=== PATIENT | female | born 1930 | race Caucasian/White ===

== ENCOUNTER 2018-01-02 09:47 | Emergency (ER) | payer OTHER ==
[2018-01-02 10:00] VITALS: BMI 17.5
[2018-01-02] MEDS ORDERED: traMADol HCL 50 MG TABLET PO ONE (10:26)
--- NOTE | 2018-01-02 10:26 | PDOC ---
History of Present Illness <Gilles Jaimes - Last Filed: 01/02/18 15:57> - General History Source: Patient Exam Limitations: No Limitations - History of Present Illness Initial Comments: 01/02/18 11:25 The patient is a 87 year old female, with a significant PMH of HTN, TIA and Afib , who presents to the emergency department with hip pain that began 2 weeks ago. The patient states she fell and had surgery 2 weeks ago to her left hip and is currently going to rehab. The patient states she has been having intermittent dull achy hip pain located to the left lateral side that radiates down her left leg since her surgery. The patient states pain worsens with movement and alleviated with rest, temporary relief with Percocet. The patient also mentions she needs assistance when ambulating. The patients physical therapist and aide recommended she go to the ER for further evaluation. The patient denies chest pain, shortness of breath, headache and dizziness. Denies fever, chills, nausea, vomit, diarrhea and constipation. Denies dysuria, frequency, urgency and hematuria. Allergies: NKDA Past surgical history: Hip surgery & laminectomy Social history: None reported PCP: None reported <Penny Wu - Last Filed: 01/02/18 16:59> - General Chief Complaint: Pain Stated Complaint: HIP PAIN Time Seen by Provider: 01/02/18 10:09 Past History - Past Medical History Cardiac Disorders: Yes COPD: No HTN: Yes Hypercholesterolemia: Yes - Surgical History Neurologic Surgery: Yes (laminectomy) - Suicide/Smoking/Psychosocial Hx Smoking History: Never smoked Have you smoked in the past 12 months: No Information on smoking cessation initiated: No Hx Alcohol Use: No Drug/Substance Use Hx: No Substance Use Type: None <Gilles Jaimes - Last Filed: 01/02/18 15:57> <Penny Wu - Last Filed: 01/02/18 16:59> - Past Medical History Allergies/Adverse Reactions: Allergies Allergy/AdvReac Type Severity Reaction Status Date / Time No Known Allergies Allergy Verified 01/02/18 09:53 Home Medications: Ambulatory Orders Acetaminophen 650 mg PO AM 01/02/18 Clotrimazole/Betamet Diprop [Lotrisone Cream (Small Tube)] 1 applic TP BID 01/02 Digoxin [Lanoxin -] 0.125 mg PO DAILY 01/02/18 Diphenhydramine [Benadryl Oral Solution -] 25 mg PO HS 01/02/18 Docusate Sodium [Colace -] 300 mg PO HS 01/02/18 Dorzolamide HCl [Trusopt 2%] 1 drop OU BID 01/02/18 Metoprolol Succinate 50 mg PO DAILY 01/02/18 Oxycodone HCl/Acetaminophen [Percocet 5-325 mg Tablet] 1 tab PO DAILY 01/02/18 Oxycodone HCl/Acetaminophen [Percocet 5-325 mg Tablet] 1 tab PO Q6H PRN Rivaroxaban [Xarelto -] 20 mg PO ASDIR 01/02/18 Simvastatin 40 mg PO HS 01/02/18 Tramadol HCl 50 mg PO QID PRN #12 tablet MDD 4 01/02/18 Review of Systems - Review of Systems Able to Perform ROS?: Yes Comments:: 01/02/18 11:27 Constitutional - Pt denies Fever, Chills, weakness, HEENT: denies vision changes, sore throat Respiratory: Denies cough, sob, hemoptysis Cardiac: denies chest pain, palpitations, lightheadedness, leg swelling Abd/GI: denies abd pain, nausea, vomiting, blood per rectum, melena, diarrhea : denies dysuria, frequency, discharge Musculoskeletal - +left hip pain. Denies back pain, joint swelling skin - denies bruising, erythema, rash neurological: denies headache, numbness, focal weakness, tingling, ataxia, weakness hematologic: denies anemia, easy bruising, easy bleeding <Penny Wu - Last Filed: 01/02/18 16:59> *Physical Exam - Vital Signs Last Vital Signs Temp Pulse Resp BP Pulse Ox 97.7 F 79 20 160/85 97 01/02/18 09:53 01/02/18 09:53 01/02/18 09:53 01/02/18 09:53 01/02/18 09:53 <Gilles Jaimes - Last Filed: 01/02/18 15:57> - Vital Signs Last Vital Signs Temp Pulse Resp BP Pulse Ox 97.7 F 79 20 160/85 97 01/02/18 09:53 01/02/18 09:53 01/02/18 09:53 01/02/18 09:53 01/02/18 09:53 <Penny Wu - Last Filed: 01/02/18 16:59> ED Treatment Course - Medications Given in the ED: ED Medications Discontinued Medications Generic Name Dose Route Start Last Admin Trade Name Saad PRN Reason Stop Dose Admin Tramadol HCl 50 mg 01/02/18 10:26 01/02/18 11:10 Ultram - PO 01/02/18 10:27 50 mg ONCE ONE Administration <Bryce,Aisblaine - Last Filed: 01/02/18 16:59> Medical Decision Making - Medical Decision Making 01/02/18 10:22 87y F hx afib on xerolto, htn (off meds now), hl, of s/p ORIF for L hip fx 2 weeks ago presents with aching/pain in hte left hip. Pt notes her pain was minimal and tolerable the first week. Afterwards notes the pain has been getting wrose. Pt noets pain is worse with movement. denies any falls/injuries. pt notes hte pain starts in her back side and radiates down her left leg to th eknee. denies any fever/chills, n/v, numbnes/tingling/weakness, cp, sob, abd pain. denies any urinary or bowel symtoms on exam pts owund site is healing well, dry, non indurated ranging her L hip passively without discomfort no focal tenderness on her back.buttock n/v intact ?sciatica will ck xray to eval her hip will give tramadol will reassess 01/02/18 14:30 pts xray reveals no acut eprocesses pt feelin gimproved will dc pt with ortho fu return prcautions were discussed I discussed the physical exam findings, ancillary test results and final diagnoses with the patient. I answered all of the patient's questions. The patient was satisfied with the care received and felt comfortable with the discharge plan and treatment plan. The patient will call their primary care physician within 24 hours to arrange follow-up and will return to the Emergency Department with any new, persistent or worsening symptoms. <Gilles Jaimes - Last Filed: 01/02/18 15:57> *DC/Admit/Observation/Transfer - Discharge Dispostion Decision to Admit order: No <Gilles Jaimes - Last Filed: 01/02/18 15:57> - Attestations Scribe Attestion: 01/02/18 11:28 Documentation prepared by Penny Wu, acting as medical malpractice paralegal for Gilles Jaimes MD. <Penny Wu - Last Filed: 01/02/18 16:59> Diagnosis at time of Disposition: Sciatica Qualifiers: Laterality: left Qualified Code(s): M54.32 - Sciatica, left side - Discharge Dispostion Disposition: HOME Condition at time of disposition: Improved - Prescriptions Prescriptions: Tramadol HCl 50 mg PO QID PRN #12 tablet MDD 4 PRN Reason: Pain - Referrals Referrals: Ricardo Mesa MD [Staff Physician] - - Patient Instructions Printed Discharge Instructions: DI for Sciatica Additional Instructions: I suspect that you're symptoms are due to sciatica. Please follow-up with orthopedics as necessary for reevaluation. You have worsening pain, difficulty ambulating, difficulty having bowel movements or urination return immediately for reevaluation. Tramadol for your pain but be aware it may make you sleepy. Print Language: BELARUSIAN
[2018-01-02] MEDS ORDERED: traMADol HCL 50 MG TABLET ONE (11:06)
[2018-01-02 16:51] VITALS: BP 146/78; PULSE 80; TEMP 97.6
== END 2018-01-02 19:59 | disposition home or self-care (01) ==
LOC: JER 09:47
DX: M54.32 Sciatica, left side (principal); I48.91 Unspecified atrial fibrillation; Z79.01 Long term (current) use of anticoagulants; Z98.890 Other specified postprocedural states
CPT/HCPCS: 73523-TC-FY; 99283-25

== ENCOUNTER 2018-01-25 00:14 | Observation (INO) | payer OTHER ==
--- NOTE | 2018-01-25 01:22 | PDOC ---
History of Present Illness - General Chief Complaint: Chronic pain Stated Complaint: DVT LEFT LEG/PRESSURE ULCER HEELS Time Seen by Provider: 01/25/18 00:26 History Source: Patient - History of Present Illness Initial Comments: 01/25/18 01:14 87 y/o f withpmh of htn, afib, hip surgery on xarelto 20mg daily was sent in from [facility] new DVT in left lower limb. Patient denies pain in leg, sob , chest pain, palpitations. Denies valvular heart sugery. Denies bleeding from nose, urine and stool. States she was in [facility] for rehab after hip fracture s/p hemiarthroplasty. States she spends 2 hours in PT and rest of the time lies in bed. , 01/25/18 01:22 01/25/18 01:25 Past History - Past Medical History Allergies/Adverse Reactions: Allergies Allergy/AdvReac Type Severity Reaction Status Date / Time No Known Allergies Allergy Verified 01/25/18 00:25 Home Medications: Ambulatory Orders Acetaminophen 650 mg PO AM 01/02/18 Clotrimazole/Betamet Diprop [Lotrisone Cream (Small Tube)] 1 applic TP BID 01/02 Digoxin [Lanoxin -] 0.125 mg PO DAILY 01/02/18 Diphenhydramine [Benadryl Oral Solution -] 25 mg PO HS 01/02/18 Docusate Sodium [Colace -] 300 mg PO HS 01/02/18 Dorzolamide HCl [Trusopt 2%] 1 drop OU BID 01/02/18 Metoprolol Succinate 50 mg PO DAILY 01/02/18 Oxycodone HCl/Acetaminophen [Percocet 5-325 mg Tablet] 1 tab PO DAILY 01/02/18 Oxycodone HCl/Acetaminophen [Percocet 5-325 mg Tablet] 1 tab PO Q6H PRN Rivaroxaban [Xarelto -] 20 mg PO ASDIR 01/02/18 Simvastatin 40 mg PO HS 01/02/18 Tramadol HCl 50 mg PO QID PRN #12 tablet MDD 4 01/02/18 Cardiac Disorders: Yes COPD: No HTN: Yes Hypercholesterolemia: Yes - Surgical History Neurologic Surgery: Yes (laminectomy) - Immunization History Immunization Up to Date: Yes - Suicide/Smoking/Psychosocial Hx Smoking History: Never smoked Have you smoked in the past 12 months: No Hx Alcohol Use: No Drug/Substance Use Hx: No Substance Use Type: None Review of Systems - Review of Systems Constitutional: No: Chills, Fever HEENTM: No: Blurred Vision Respiratory: No: Cough, Shortness of Breath, Productive cough Cardiac (ROS): No: Chest Pain, Lightheadedness, Palpitations ABD/GI: No: Diarrhea, Nausea, Vomiting : No: Burning, Dysuria, Frequency Neurological: No: Symptoms reported, Headache, Numbness, Tingling *Physical Exam - Vital Signs Last Vital Signs Temp Pulse Resp BP Pulse Ox 98.3 F 60 20 154/88 99 01/25/18 00:23 01/25/18 00:23 01/25/18 00:23 01/25/18 00:23 01/25/18 00:23 ED Treatment Course - LABORATORY CBC & Chemistry Diagram: 01/25/18 02:05 01/25/18 02:05 - RADIOLOGY Radiology Studies Ordered: Category Date Time Status DUPLEX VASCUL US-2LEGS [US] Stat Ultrasound 01/25/18 01:13 Ordered Medical Decision Making - Medical Decision Making 01/25/18 01:00 87 y/o f withpmh of htn, afib, hip surgery on xarelto 20mg daily was sent in from [facility] new DVT in left lower limb. Patient denies pain in leg, sob , chest pain, palpitations. Denies valvular heart sugery. Denies bleeding from nose, urine and stool. called [facility] home, confirmed from nurse wesley that patient took last dose of xarelto at 5 pm duplex scan report from [facility]: shows dvt in posterior tebial artery We will get cbc, cmp, cxr, pt/inr, ptt. 01/25/18 01:[address] marcelo. As patient has failure of xarelto she needs to be switched to other AC after minimum 12 hours. We will start her on heparin drip without bolus after 12 hours from last dose of xarelt at 5 am and then after 24 hours from last dose of xarelto i.e at 5pm we will switch her to lovenox. watch for bleeding. fall risk precaustions. 01/25/18 02:55 [facility] Spoke with resident Dr. Olu guan MD. patient accepted. *DC/Admit/Observation/Transfer Diagnosis at time of Disposition: DVT (deep venous thrombosis) Qualifiers: DVT location: lower extremity Affected thrombotic vein of extremity: tibial Chronicity: acute Laterality: left Qualified Code(s): I82.442 - Acute embolism and thrombosis of left tibial vein - Discharge Dispostion Decision to Admit order: Yes - Referrals - Patient Instructions - Post Discharge Activity
[2018-01-25] MEDS ORDERED: HEPARIN NA (PORCINE) 5,000 UNITS/ML 1ML VIAL IVPUSH PRN ×2 (01:30)
--- NOTE | 2018-01-25 02:00 | PDOC ---
Attending Attestation - Resident Resident Name: YonatanChester Cher - ED Attending Attestation I have performed the following: I have examined & evaluated the patient, The case was reviewed & discussed with the resident, I agree w/resident's findings & plan, Exceptions are as noted - HPI HPI: 01/25/18 01:58 87 yo F with h/o afib, hip surgery here with ankle swelling, found to have dvt left leg. has been on xarelto. no cp no sob. no other complaints. - Physicial Exam PE: 01/25/18 01:59 awake alert lungs clear bilaterlly heart rrr no mrg. abd soft nt nd. ext wwp. no appreiciated edema. - Medical Decision Making 01/25/18 01:59 plan will likley require heparin, and switch to another agent. may also require ivc filter. will d/w hematology. plan to admit for anticoagulation. labs cbc cmp inr.
[2018-01-25 02:20] LABS: BASO % 1.4 % (0-2.0); EOS % 1.4 % (0-4.5); HEMATOCRIT 35.7 % (32.4-45.2); HEMOGLOBIN 12.1 GM/dL (10.7-15.3); LYMPH % 18.7 % (8-40); MCH 30.2 pg (25.7-33.7); MCHC 33.8 g/dl (32.0-36.0); MEAN CELL VOLUME 89.3 fl (80-96); MEAN PLT VOLUME 6.3 fl (7.5-11.1); MONO % 8.8 % (3.8-10.2); NEUT % 69.7 % (42.8-82.8); PLATELET COUNT 485 K/MM3 (134-434); RDW 14.5 % (11.6-15.6); WHITE BLOOD COUNT 7.8 K/mm3 (4.0-10.0)
[2018-01-25 02:32] LABS: INR 1.64 (0.83-1.09); PROTHROMBIN TIME (PATIENT) 18.5 SEC (9.7-13.0)
[2018-01-25 02:35] LABS: ACTIVATED PTT 42.5 SECONDS (25.2-36.5)
[2018-01-25 02:44] LABS: ALBUMIN 2.8 g/dl (3.4-5.0); ANION GAP 5 MMOL/L (8-16); BILIRUBIN,TOTAL 0.4 mg/dL (0.2-1.0); BLOOD UREA NITROGEN 10 mg/dL (7-18); CALCIUM 8.4 mg/dL (8.5-10.1); CHLORIDE 101 mmol/L (98-107); CO2 30 mmol/L (21-32); CREATININE 0.6 mg/dL (0.55-1.02); GLUCOSE,RANDOM 83 mg/dL (74-106); POTASSIUM 4.7 mmol/L (3.5-5.1); SGOT/AST 28 U/L (15-37); SGPT/ALT 22 U/L (12-78); SODIUM 136 mmol/L (136-145); TOT PROT 5.8 g/dl (6.4-8.2)
[2018-01-25 02:45] LABS: ALK PHOS 121 U/L (45-117)
--- NOTE | 2018-01-25 02:54 | PN ---
Teaching Attending Note Name of Resident: Chava Santos ATTENDING PHYSICIAN STATEMENT I saw and evaluated the patient. I reviewed the resident's note and discussed the case with the resident. I agree with the resident's findings and plan as documented. SUBJECTIVE: Patient is an 87 year old woman, resident of [facility] with history of HTN, afib , left hip surgery after a fall, laminectomy and TIA on xarelto 20mg daily brought to the ER for new DVT in left lower limb. Patient denies pain in leg, sob, chest pain, palpitations. Denies valvular heart surgery. Denies bleeding from nose, urine and stool. She is at [facility] for rehab after hip fracture s/p hemiarthroplasty. States she spends 2 hours in PT and rest of the time lies in bed. OBJECTIVE: Alert Vital Signs Period Temp Pulse Resp BP Sys/Pabon Pulse Ox Last 24 Hr 98.3 F 60 20 154/88 99 HEENT: No Jaundice, eye redness or discharge, PERRLA, EOMI. Normocephalic, atraumatic. External ears are normal and hearing is grossly intact. No nasal discharge. Neck: Supple, nontender. No palpable adenopathy or thyromegaly. No JVD Chest: Good effort. Clear to auscultation and percussion. Heart: Regular. No S3, rub or murmur Abdomen: Not distended, soft, nontender and no HSM. No rebound or guarding. Normoactive bowel sounds. Ext: Peripheral pulses intact. Left heel ulcer with dressing and heel guard. Left leg edema. Limited ROM of left hip. Skin: Warm and dry. No petechiae, rash or ecchymosis. Neuro: Alert. Oriented x3. CN 2-12 grossly intact. Sensation grossly intact in all four extremities and DTR are symmetric. Current Medications Generic Name Dose Route Start Last Admin Trade Name Freq PRN Reason Stop Dose Admin Heparin Sodium (Porcine) 1,900 unit 01/25/18 01:30 Heparin - 40 unit/kg (1900 unit) IVPUSH PRN PRN For aPTT 35 to 45 seconds Heparin Sodium (Porcine) 3,800 unit 01/25/18 01:30 Heparin - 80 unit/kg (3800 unit) IVPUSH PRN PRN aPTT <35 seconds Heparin Sodium (Porcine) 25, 500 mls @ 16.98 mls/hr 01/25/18 05:30 000 unit/ Sodium Chloride IV TITR CASPER Protocol 18 UNIT/KG/HR Home Medications Medication Instructions Recorded Acetaminophen 650 mg PO AM 01/02/18 Clotrimazole/Betamet Diprop 1 applic TP BID 01/02/18 [Lotrisone Cream (Small Tube)] Digoxin [Lanoxin -] 0.125 mg PO DAILY 01/02/18 Diphenhydramine [Benadryl Oral 25 mg PO HS 01/02/18 Solution -] Docusate Sodium [Colace -] 300 mg PO HS 01/02/18 Dorzolamide HCl [Trusopt 2%] 1 drop OU BID 01/02/18 Metoprolol Succinate 50 mg PO DAILY 01/02/18 Oxycodone HCl/Acetaminophen 1 tab PO DAILY 01/02/18 [Percocet 5-325 mg Tablet] Oxycodone HCl/Acetaminophen 1 tab PO Q6H PRN 01/02/18 [Percocet 5-325 mg Tablet] Rivaroxaban [Xarelto -] 20 mg PO ASDIR 01/02/18 Simvastatin 40 mg PO HS 01/02/18 Tramadol HCl 50 mg PO QID PRN #12 tablet MDD 4 01/02/18 Abnormal Lab Results 01/25/18 01/25/18 01/25/18 02:05 02:05 02:05 Plt Count 485 H MPV 6.3 L PT with INR 18.50 H INR 1.64 H PTT (Actin FS) 42.5 H Anion Gap 5 L Calcium 8.4 L Alkaline Phosphatase 121 H Total Protein 5.8 L Albumin 2.8 L ASSESSMENT AND PLAN: 1. Left leg DVT - Happened while on Xarelto. Repeat study being done. Being started on IV heparin drip 12 hours after last Xarelto dose and then bridge to lovenox later. Hematology consult. 2. Hypoalbuminemia - Possibly due to combined effects of malnutrition and inflammation associated with comorbid chronic conditions. Will ensure adequate dietary protein intake and also consult breast buffer. 3. DVT prophylaxis - On IV Heparin drip 4. Advance directives - Full code
--- NOTE | 2018-01-25 04:48 | HP ---
CHIEF COMPLAINT: Clot in Leg PCP: HISTORY OF PRESENT ILLNESS: 87 yo female with PMH HTN, HLD, A-fib, Left hip surgery x 2 since november presented from [facility] after her leg was noted to be swollen there and she was diagnosed with a LLE DVT on u/s. She says they noted her left leg to be swollen for a few days so they did an ultrasound which showed a clot. Of note the pt has been on Xarelto 20 mg PO Daily for AC. She denies any headache, vision changes, SOB, Chest pain, pleuritic pain, cough, or pain in her legs. She spends a couple of hours with PT daily but is otherwise confined to her bed ER course was notable for: (1) B/l Duplex LE (2) Case discussed with hematology (3) Recent Travel: none PAST MEDICAL HISTORY: HTN, HLD, A-fib PAST SURGICAL HISTORY: Left hip surgery in November of this year -Left hip partial arthroplasty in December of this year Social History: Smoking: denies Alcohol: denies Drugs: denies Family History: Allergies No Known Allergies Allergy (Verified 01/25/18 00:25) HOME MEDICATIONS: Home Medications Medication Instructions Recorded Acetaminophen 650 mg PO AM 01/02/18 Clotrimazole/Betamet Diprop 1 applic TP BID 01/02/18 [Lotrisone Cream (Small Tube)] Digoxin [Lanoxin -] 0.125 mg PO DAILY 01/02/18 Diphenhydramine [Benadryl Oral 25 mg PO HS 01/02/18 Solution -] Docusate Sodium [Colace -] 300 mg PO HS 01/02/18 Dorzolamide HCl [Trusopt 2%] 1 drop OU BID 01/02/18 Metoprolol Succinate 50 mg PO DAILY 01/02/18 Oxycodone HCl/Acetaminophen 1 tab PO DAILY 01/02/18 [Percocet 5-325 mg Tablet] Oxycodone HCl/Acetaminophen 1 tab PO Q6H PRN 01/02/18 [Percocet 5-325 mg Tablet] Rivaroxaban [Xarelto -] 20 mg PO ASDIR 01/02/18 Simvastatin 40 mg PO HS 01/02/18 Tramadol HCl 50 mg PO QID PRN #12 tablet MDD 4 01/02/18 REVIEW OF SYSTEMS CONSTITUTIONAL: Absent: fever, chills, diaphoresis, generalized weakness, malaise, loss of appetite, weight change HEENT: Absent: rhinorrhea, nasal congestion, throat pain, throat swelling, difficulty swallowing, mouth swelling, ear pain, eye pain, visual changes CARDIOVASCULAR: Absent: chest pain, syncope, palpitations, irregular heart rate, lightheadedness , peripheral edema RESPIRATORY: Absent: cough, shortness of breath, dyspnea with exertion, orthopnea, wheezing, stridor, hemoptysis GASTROINTESTINAL: Absent: abdominal pain, abdominal distension, nausea, vomiting, diarrhea, constipation, melena, hematochezia GENITOURINARY: Absent: dysuria, frequency, urgency, hesitancy, hematuria, flank pain, genital pain MUSCULOSKELETAL: Absent: myalgia, arthralgia, joint swelling, back pain, neck pain SKIN: Absent: rash, itching, pallor HEMATOLOGIC/IMMUNOLOGIC: Absent: easy bleeding, easy bruising, lymphadenopathy, frequent infections ENDOCRINE: Absent: unexplained weight gain, unexplained weight loss, heat intolerance, cold intolerance NEUROLOGIC: Absent: headache, focal weakness or paresthesias, dizziness, unsteady gait, seizure, mental status changes, bladder or bowel incontinence PSYCHIATRIC: Absent: anxiety, depression, suicidal or homicidal ideation, hallucinations. PHYSICAL EXAMINATION Vital Signs - 24 hr 01/25/18 01/25/18 00:23 03:35 Temperature 98.3 F 98.3 F Pulse Rate 60 Pulse Rate [ 62 Left Radial] Respiratory 20 20 Rate Blood Pressure 154/88 Blood Pressure 134/80 [Left Arm] O2 Sat by Pulse 99 98 Oximetry (%) Gen: Alert and oriented, no acute distress HEENT: PERRL, EOMI, moist mucus membranes Neck:supple, no lymphadenopathy Heart: Irregularly irregular no murmurs Lungs: CTA b/l, no rhonchi or wheezes Abdomen: Soft nontender, normoactive bowel sounds Extremities: Swelling on LLL when compared with right. 2+ pulses throughout. LLL heel ulcer currently being offloaded Laboratory Results - last 24 hr 01/25/18 01/25/18 01/25/18 02:05 02:05 02:05 WBC 7.8 RBC 4.00 Hgb 12.1 Hct 35.7 MCV 89.3 MCH 30.2 MCHC 33.8 RDW 14.5 Plt Count 485 H MPV 6.3 L Absolute Neuts (auto) 5.4 Neutrophils % 69.7 Lymphocytes % 18.7 Monocytes % 8.8 Eosinophils % 1.4 Basophils % 1.4 Nucleated RBC % 0 PT with INR INR PTT (Actin FS) Sodium 136 Potassium 4.7 Chloride 101 Carbon Dioxide 30 Anion Gap 5 L BUN 10 Creatinine 0.6 Creat Clearance w eGFR > 60 Random Glucose 83 Calcium 8.4 L Magnesium 2.3 Total Bilirubin 0.4 AST 28 ALT 22 Alkaline Phosphatase 121 H Total Protein 5.8 L Albumin 2.8 L 01/25/18 02:05 WBC RBC Hgb Hct MCV MCH MCHC RDW Plt Count MPV Absolute Neuts (auto) Neutrophils % Lymphocytes % Monocytes % Eosinophils % Basophils % Nucleated RBC % PT with INR 18.50 H INR 1.64 H PTT (Actin FS) 42.5 H Sodium Potassium Chloride Carbon Dioxide Anion Gap BUN Creatinine Creat Clearance w eGFR Random Glucose Calcium Magnesium Total Bilirubin AST ALT Alkaline Phosphatase Total Protein Albumin ASSESSMENT/PLAN: 87 yo female with PMH HTN, HLD, A-fib, Left hip surgery x 2 since november admitted for observation following formation of a DVT in her LLL while on Xarelto. DVT on AC -Etiology of Xarelto failure is unknown, pt not on any CY inducers -B/l duplex of LEs reformed at our institution -Case discussed with Heme/Onc by ED provider Last dose Xarelto confirmed 5pm At 5 am (12 hrs later) pt can begin heparin drip at 5 pm (24 hours later) pt can stop heparin drip and begin lovenox Will await further recommendations from hematology -Pt without any respiratory symptom, tachycardia, or hemodynamic instability. Will hold off on CTA chest A-fib -Pt rate is currently well controlled and she is hemodynamically stable -Toprol XL 50 mg PO Daily -Digoxin 0.125 mg PO Daily HLD -Lipitor 20 mg PO HS DVT Prophylaxis -known DVT, will start heparin drip in AM and progress as above FEN Fluids: None Electrolytes: No electrolyte abnormalities: BMP in AM Nutrition: Sodium controlled diet Disposition Observation for medication adjustment Visit type - Emergency Visit Emergency Visit: Yes Care time: The patient presented to the Emergency Department on the above date and was hospitalized for further evaluation of their emergent condition. - New Patient This patient is new to me today: Yes Date on this admission: 01/25/18 - Critical Care Critical Care patient: No Hospitalist Screening - Colonoscopy Questionnaire Colonoscopy Questionnaire: Colonoscopy Questionnaire - Patient: 50 - 75 years old and never had a screening colonoscopy: No History of colon or rectal polyps, or CA: No History of IBD, Crohn's disease or UC: No History of abdominal radiation therapy as a child: No - Relative: 1 with colon or rectal CA, or polyps at age 60 or younger: No Colon or rectal CA diagnosed at age 45 or younger: No Multiple relatives with colon or rectal CA: No - Outcome: Screening Result: Negative Screen
[2018-01-25] MEDS ORDERED: HEPARIN - 25,000 UNIT in SODIUM CHLORIDE 495 ML IV SCH (05:30)
[2018-01-25] MEDS ORDERED: HEPARIN INFUSION - 25,000 UNITS/500 ML INFUS.BAG IVPB SCH (05:45)
[2018-01-25] MEDS: ACETAMINOPHEN 325 MG TABLET (FP) PO SCH ×2 (06:56→06:58)
[2018-01-25] MEDS ORDERED: PT OWN MED DRAWER 7, Y5N ONE (09:56)
[2018-01-25] MEDS: DIGOXIN 0.125 MG TABLET (FP) PO SCH (10:49)
[2018-01-25] MEDS: CLOTRIMAZOLE/BETAMET DIPROP 15 GM TUBE TP SCH ×2 (10:50→22:08)
[2018-01-25] MEDS: DORZOLAMIDE 2% HCL OPHTHALMIC SOLUTION 10 ML BOTTLE OU SCH ×2 (10:51→22:07)
[2018-01-25] MEDS ORDERED: traMADol HCL 50 MG TABLET PO PRN (14:04)
--- NOTE | 2018-01-25 16:28 | PN ---
Physical Exam: SUBJECTIVE: Patient seen and examined, no new left leg pain. no chest pain, dypsnea, palpitations or dizziness. OBJECTIVE: Vital Signs Period Temp Pulse Resp BP Sys/Pabon Pulse Ox Last 24 Hr 97.5 F-98.3 F 60-78 18-20 134-156/80-88 98-99 GENERAL: The patient is awake, alert, and fully oriented, in no acute distress. HEAD: Normal with no signs of trauma. EYES: PERRL, extraocular movements intact, sclera anicteric, conjunctiva clear. No ptosis. NECK: soft, supple, no JVD LUNGS: Breath sounds equal, clear to auscultation bilaterally, no wheezes, no crackles, no accessory muscle use. HEART: S1S2 irregular ABDOMEN: Soft, nontender, nondistended, normoactive bowel sounds, no guarding, no rebound, EXTREMITIES: 2+ pulses, warm, well-perfused, no edema appreciated, moves left leg freely in bed PSYCH: Normal mood, normal affect. SKIN: Warm, dry, normal turgor, no rashes or lesions noted Laboratory Results - last 24 hr 01/25/18 01/25/18 01/25/18 02:05 02:05 02:05 WBC 7.8 RBC 4.00 Hgb 12.1 Hct 35.7 MCV 89.3 MCH 30.2 MCHC 33.8 RDW 14.5 Plt Count 485 H MPV 6.3 L Absolute Neuts (auto) 5.4 Neutrophils % 69.7 Lymphocytes % 18.7 Monocytes % 8.8 Eosinophils % 1.4 Basophils % 1.4 Nucleated RBC % 0 PT with INR INR PTT (Actin FS) Sodium 136 Potassium 4.7 Chloride 101 Carbon Dioxide 30 Anion Gap 5 L BUN 10 Creatinine 0.6 Creat Clearance w eGFR > 60 Random Glucose 83 Calcium 8.4 L Magnesium 2.3 Total Bilirubin 0.4 AST 28 ALT 22 Alkaline Phosphatase 121 H Total Protein 5.8 L Albumin 2.8 L 01/25/18 01/25/18 02:05 12:15 WBC RBC Hgb Hct MCV MCH MCHC RDW Plt Count MPV Absolute Neuts (auto) Neutrophils % Lymphocytes % Monocytes % Eosinophils % Basophils % Nucleated RBC % PT with INR 18.50 H INR 1.64 H PTT (Actin FS) 42.5 H 51.9 H Sodium Potassium Chloride Carbon Dioxide Anion Gap BUN Creatinine Creat Clearance w eGFR Random Glucose Calcium Magnesium Total Bilirubin AST ALT Alkaline Phosphatase Total Protein Albumin Active Medications Generic Name Dose Route Start Last Admin Trade Name Freq PRN Reason Stop Dose Admin Acetaminophen 650 mg 01/25/18 07:00 01/25/18 06:58 Tylenol - PO Not Given AM [facility] Atorvastatin Calcium 20 mg 01/25/18 22:00 Lipitor - PO HS [facility] Clotrimazole 1 applic 01/25/18 10:00 01/25/18 10:50 Lotrisone Cream (Small Tube) TP 1 applic BID [facility] Administration Digoxin 0.125 mg 01/25/18 10:00 01/25/18 10:49 Lanoxin - PO 0.125 mg DAILY [facility] Administration Docusate Sodium 300 mg 01/25/18 22:00 Colace - PO HS [facility] Dorzolamide HCl 1 drop 01/25/18 10:00 01/25/18 10:51 Trusopt 2% OU 1 drop BID [facility] Administration Enoxaparin Sodium 45 mg 01/25/18 17:00 Lovenox - SQ BID@0500,1700 [facility] Metoprolol Succinate 50 mg 01/25/18 10:00 01/25/18 10:49 Toprol Xl - PO 50 mg DAILY [facility] Administration Tramadol HCl 50 mg 01/25/18 14:04 01/25/18 15:00 Ultram - PO 50 mg Q8H PRN Administration PAIN LEVEL 6-10 Duplex LE neg for DVT ASSESSMENT/PLAN: 87 yof with PMhx of Left hip surgery x2 since November, Afib, HTN, HLD, on xarelto, sent from [place] for concerns of LLE DVT on outpatient imaging. -Recent left hip surgery x 2 since November -Left posterior tibial/peroneal DVT on outpatient imaging, [place] here neg -Afib -HTN -HLD Plan: Duplex both LE neg here. Called radiology to discuss in details, especial about left posterior and peroneal veins as commented on outpatient Duplex. Unable to reach currently. ( off for the day per staff) Heparin drip dc ed 3:30 pm, start lovenox 45 mg BID at 5 pm today. Discussed with heme, will follow up recs. Continue home pain regimen. Continue toprol/digoxin/statin. Dispo will plan to d/c back to [facility] in 24 hours on xarelto pending confirmation of no DVT on DUplex, Hematology in agreement with the plan. Plan discussed with patient and nursing in detail, all questions answered. Visit type - Emergency Visit Emergency Visit: Yes ED Registration Date: 01/25/18 Care time: The patient presented to the Emergency Department on the above date and was hospitalized for further evaluation of their emergent condition. - New Patient This patient is new to me today: Yes Date on this admission: 01/25/18 - Critical Care Critical Care patient: No - Discharge Referral Referred to [facility] Med P.C.: No
--- NOTE | 2018-01-25 17:50 | CONSULT ---
Consult - text type - Consultation Consultation Note: 87 yo female with PMH HTN, HLD, A-fib, Left hip surgery x 2 since november presented from [facility] after her leg was noted to be swollen there and she was diagnosed with a LLE DVT on u/s. She says they noted her left leg to be swollen for a few days so they did an ultrasound which showed a clot. Of note the pt has been on Xarelto 20 mg PO Daily for AC. She denies any headache, vision changes, SOB, Chest pain, pleuritic pain, cough, or pain in her legs. She spends a couple of hours with PT daily but is otherwise confined to her bed PAST MEDICAL HISTORY: HTN, HLD, A-fib PAST SURGICAL HISTORY: Left hip surgery in November of this year -Left hip partial arthroplasty in December of this year Social History: Smoking: denies Alcohol: denies Drugs: denies Family History: Allergies No Known Allergies Allergy (Verified 01/25/18 00:25) HOME MEDICATIONS: Home Medications Medication Instructions Recorded Acetaminophen 650 mg PO AM 01/02/18 Clotrimazole/Betamet Diprop 1 applic TP BID 01/02/18 [Lotrisone Cream (Small Tube)] Digoxin [Lanoxin -] 0.125 mg PO DAILY 01/02/18 Diphenhydramine [Benadryl Oral 25 mg PO HS 01/02/18 Solution -] Docusate Sodium [Colace -] 300 mg PO HS 01/02/18 Dorzolamide HCl [Trusopt 2%] 1 drop OU BID 01/02/18 Metoprolol Succinate 50 mg PO DAILY 01/02/18 Oxycodone HCl/Acetaminophen 1 tab PO DAILY 01/02/18 [Percocet 5-325 mg Tablet] Oxycodone HCl/Acetaminophen 1 tab PO Q6H PRN 01/02/18 [Percocet 5-325 mg Tablet] Rivaroxaban [Xarelto -] 20 mg PO ASDIR 01/02/18 Simvastatin 40 mg PO HS 01/02/18 Tramadol HCl 50 mg PO QID PRN #12 tablet MDD 4 01/02/18 PHYSICAL EXAMINATION Vital Signs - 24 hr 01/25/18 01/25/18 00:23 03:35 Temperature 98.3 F 98.3 F Pulse Rate 60 Pulse Rate [ 62 Left Radial] Respiratory 20 20 Rate Blood Pressure 154/88 Blood Pressure 134/80 [Left Arm] O2 Sat by Pulse 99 98 Oximetry (%) CACHECTIC Gen: Alert and oriented, no acute distress Neck:supple, no lymphadenopathy Heart: Irregularly irregular no murmurs Lungs: CTA b/l, no rhonchi or wheezes Abdomen: Soft nontender, normoactive bowel sounds Extremities: 2+ pulses throughout. LLL heel ulcer currently being offloaded Laboratory Results - last 24 hr 01/25/18 01/25/18 01/25/18 02:05 02:05 02:05 WBC 7.8 RBC 4.00 Hgb 12.1 Hct 35.7 MCV 89.3 MCH 30.2 MCHC 33.8 RDW 14.5 Plt Count 485 H MPV 6.3 L Absolute Neuts (auto) 5.4 Neutrophils % 69.7 Lymphocytes % 18.7 Monocytes % 8.8 Eosinophils % 1.4 Basophils % 1.4 Nucleated RBC % 0 PT with INR INR PTT (Actin FS) Sodium 136 Potassium 4.7 Chloride 101 Carbon Dioxide 30 Anion Gap 5 L BUN 10 Creatinine 0.6 Creat Clearance w eGFR > 60 Random Glucose 83 Calcium 8.4 L Magnesium 2.3 Total Bilirubin 0.4 AST 28 ALT 22 Alkaline Phosphatase 121 H Total Protein 5.8 L Albumin 2.8 L 01/25/18 02:05 WBC RBC Hgb Hct MCV MCH MCHC RDW Plt Count MPV Absolute Neuts (auto) Neutrophils % Lymphocytes % Monocytes % Eosinophils % Basophils % Nucleated RBC % PT with INR 18.50 H INR 1.64 H PTT (Actin FS) 42.5 H Sodium Potassium Chloride Carbon Dioxide Anion Gap BUN Creatinine Creat Clearance w eGFR Random Glucose Calcium Magnesium Total Bilirubin AST ALT Alkaline Phosphatase Total Protein Albumin ASSESSMENT/PLAN: 87 yo female with PMH HTN, HLD, A-fib, Left hip surgery x 2 since november admitted for observation following LLE DVT, noted at SNF , while on xeralto for afib Repeat duplex is negative Would confirm with radiology--if no evidence of DVT , would switch back to xeralto or eliquis ? eliquis 2.5mg bid will discuss with primary team
[2018-01-25] MEDS: ENOXAPARIN NA (PORCINE) 60 MG/0.6 ML DISP.SYRIN SQ SCH (18:16)
[2018-01-25] MEDS: DOCUSATE SODIUM 100 MG CAPSULE (FP) PO SCH (22:08)
[2018-01-25] MEDS: ATORVASTATIN CA 20 MG TABLET (FP) PO SCH (22:08)
[2018-01-26] MEDS: ENOXAPARIN NA (PORCINE) 60 MG/0.6 ML DISP.SYRIN SQ SCH ×2 (06:15→18:20)
[2018-01-26] MEDS: ACETAMINOPHEN 325 MG TABLET (FP) PO SCH (06:16)
[2018-01-26 08:22] LABS: BASO % 0.8 % (0-2.0); EOS % 0.3 % (0-4.5); HEMATOCRIT 36.7 % (32.4-45.2); HEMOGLOBIN 12.2 GM/dL (10.7-15.3); LYMPH % 5.9 % (8-40); MCH 29.7 pg (25.7-33.7); MCHC 33.2 g/dl (32.0-36.0); MEAN CELL VOLUME 89.5 fl (80-96); MEAN PLT VOLUME 6.6 fl (7.5-11.1); MONO % 7.7 % (3.8-10.2); NEUT % 85.3 % (42.8-82.8); PLATELET COUNT 382 K/MM3 (134-434); RBC 4.11 M/mm3 (3.60-5.2); RDW 14.6 % (11.6-15.6); WHITE BLOOD COUNT 14.9 K/mm3 (4.0-10.0)
[2018-01-26 08:36] LABS: INR 1.12 (0.83-1.09); PROTHROMBIN TIME (PATIENT) 12.7 SEC (9.7-13.0)
[2018-01-26 09:02] LABS: CHLORIDE 98 mmol/L (98-107); POTASSIUM 4.3 mmol/L (3.5-5.1); SODIUM 137 mmol/L (136-145)
[2018-01-26 09:09] LABS: ANION GAP 11 MMOL/L (8-16); BLOOD UREA NITROGEN 8 mg/dL (7-18); CALCIUM 8.8 mg/dL (8.5-10.1); CO2 28 mmol/L (21-32); CREATININE 0.5 mg/dL (0.55-1.02); GLUCOSE,RANDOM 90 mg/dL (74-106); MAGNESIUM 2.3 mg/dL (1.8-2.4); PHOSPHOROUS 3.5 mg/dL (2.5-4.9)
[2018-01-26] MEDS ORDERED: PT OWN MED DRAWER 7, Y5N ONE (10:56)
[2018-01-26] MEDS: DIGOXIN 0.125 MG TABLET (FP) PO SCH (11:08)
[2018-01-26 11:30] LABS: BASO % 0.7 % (0-2.0); EOS % 0.3 % (0-4.5); HEMATOCRIT 37.6 % (32.4-45.2); HEMOGLOBIN 12.1 GM/dL (10.7-15.3); LYMPH % 7.3 % (8-40); MEAN CELL VOLUME 90.4 fl (80-96); MEAN PLT VOLUME 6.2 fl (7.5-11.1); MONO % 6.2 % (3.8-10.2); NEUT % 85.5 % (42.8-82.8); PLATELET COUNT 404 K/MM3 (134-434); RBC 4.16 M/mm3 (3.60-5.2); RDW 14.5 % (11.6-15.6)
[2018-01-26] MEDS: DORZOLAMIDE 2% HCL OPHTHALMIC SOLUTION 10 ML BOTTLE OU SCH ×2 (12:22→22:23)
[2018-01-26] MEDS: CLOTRIMAZOLE/BETAMET DIPROP 15 GM TUBE TP SCH ×2 (12:23→22:20)
--- NOTE | 2018-01-26 12:58 | PN ---
Teaching Attending Note Name of Resident: Padmini Sevilla ATTENDING PHYSICIAN STATEMENT I saw and evaluated the patient. I reviewed the resident's note and discussed the case with the resident. I agree with the resident's findings and plan as documented with exceptions below. SUBJECTIVE: Patient seen and examined. No new complaints, leg pain or dyspnea. Feels well, eager to go back to [facility] OBJECTIVE: Vital Signs Period Temp Pulse Resp BP Sys/Pabon Pulse Ox Last 24 Hr 97.4 F-98.1 F 73-80 18-18 133-157/66-76 98 Intake & Output 01/23/18 01/24/18 01/25/18 01/26/18 23:59 23:59 23:59 23:59 Intake Total 802.1 740 Balance 802.1 740 Weight 99 lb 12.8 oz General: sitting in bed in no acute distress Extremities: no visible LLE edema or tenderness, positive pulses Chest: CTAB, no rales or wheezing ABdomen:Soft, ND Home Medications Medication Instructions Recorded Acetaminophen 650 mg PO AM 01/02/18 Clotrimazole/Betamet Diprop 1 applic TP BID 01/02/18 [Lotrisone Cream (Small Tube)] Digoxin [Lanoxin -] 0.125 mg PO DAILY 01/02/18 Diphenhydramine [Benadryl Oral 25 mg PO HS 01/02/18 Solution -] Docusate Sodium [Colace -] 300 mg PO HS 01/02/18 Dorzolamide HCl [Trusopt 2%] 1 drop OU BID 01/02/18 Metoprolol Succinate 50 mg PO DAILY 01/02/18 Oxycodone HCl/Acetaminophen 1 tab PO DAILY 01/02/18 [Percocet 5-325 mg Tablet] Oxycodone HCl/Acetaminophen 1 tab PO Q6H PRN 01/02/18 [Percocet 5-325 mg Tablet] Rivaroxaban [Xarelto -] 20 mg PO ASDIR 01/02/18 Simvastatin 40 mg PO HS 01/02/18 Tramadol HCl 50 mg PO QID PRN #12 tablet MDD 4 01/02/18 Active Medications Acetaminophen (Tylenol -) 650 mg PO AM [facility] Last Admin: 01/26/18 06:16 Dose: Not Given Atorvastatin Calcium (Lipitor -) 20 mg PO [facility] Last Admin: 01/25/18 22:08 Dose: 20 mg Clotrimazole (Lotrisone Cream (Small Tube)) 1 applic TP BID [facility] Last Admin: 01/26/18 12:23 Dose: 1 applic Digoxin (Lanoxin -) 0.125 mg PO DAILY [facility] Last Admin: 01/26/18 11:08 Dose: 0.125 mg Docusate Sodium (Colace -) 300 mg PO [facility] Last Admin: 01/25/18 22:08 Dose: 300 mg Dorzolamide HCl (Trusopt 2%) 1 drop OU BID [facility] Last Admin: 01/26/18 12:22 Dose: 1 drop Enoxaparin Sodium (Lovenox -) 45 mg SQ BID@0500,1700 [facility] Last Admin: 01/26/18 06:15 Dose: 45 mg Metoprolol Succinate (Toprol Xl -) 50 mg PO DAILY [facility] Last Admin: 01/26/18 11:09 Dose: 50 mg Tramadol HCl (Ultram -) 50 mg PO Q8H PRN PRN Reason: PAIN LEVEL 6-10 Last Admin: 01/25/18 15:00 Dose: 50 mg Laboratory Results - last 24 hr 01/26/18 01/26/18 01/26/18 07:35 07:35 07:35 WBC 14.9 H RBC 4.11 Hgb 12.2 Hct 36.7 MCV 89.5 MCH 29.7 MCHC 33.2 RDW 14.6 Plt Count 382 D MPV 6.6 L Absolute Neuts (auto) 12.7 H Neutrophils % 85.3 H D Lymphocytes % 5.9 L D Monocytes % 7.7 Eosinophils % 0.3 Basophils % 0.8 Nucleated RBC % 0 PT with INR 12.70 INR 1.12 H Sodium 137 Potassium 4.3 Chloride 98 Carbon Dioxide 28 Anion Gap 11 BUN 8 Creatinine 0.5 L Creat Clearance w eGFR > 60 Random Glucose 90 Calcium 8.8 Phosphorus 3.5 Magnesium 2.3 01/26/18 11:00 WBC 14.0 H RBC 4.16 Hgb 12.1 Hct 37.6 MCV 90.4 MCH 29.0 MCHC 32.0 RDW 14.5 Plt Count 404 MPV 6.2 L Absolute Neuts (auto) 12.0 H Neutrophils % 85.5 H Lymphocytes % 7.3 L D Monocytes % 6.2 Eosinophils % 0.3 Basophils % 0.7 Nucleated RBC % 0 PT with INR INR Sodium Potassium Chloride Carbon Dioxide Anion Gap BUN Creatinine Creat Clearance w eGFR Random Glucose Calcium Phosphorus Magnesium Duplex LLE (01/25)- no DVT\ Duplex LLE (01/26) Left soleal vein DVT ASSESSMENT AND PLAN: 87 yof with PMhx of Left hip surgery x2 since November, Afib, HTN, HLD, on xarelto, sent from [place] for concerns of LLE DVT on outpatient imaging. -Recent left hip surgery x 2 since November -Left posterior tibial/peroneal DVT on outpatient imaging, here with Left soleal vein DVT -Leucocytosis, screen for infection -Afib -HTN -HLD Plan: Outpatient Duplex with Left posterior tibial/peroneal vein DVT Duplex 01/25 here neg for DVT. Discussed with Ultrasound, Peroneal vein no visible on the study. Repeat study done today, confirms compressible peroneal vein but with soleal vein DVT on the result. Hold xarelto. Off heparin drip. Continue lovenox. Follow up with hematology. Suspect lovenox /coumadin bridging on d/c with outpatient follow up if needs anti-coagulation beyond 3-6 months. Elevated WBC, no focal symptoms, Check urinalysis. Continue home pain regimen. Continue toprol/digoxin/statin. Code: per discussion with HCP, has advance directives, to fax the same, [facility] pending hematology plan. Plan discussed with patient and nursing in detail, all questions answered.
--- NOTE | 2018-01-26 13:36 | EKG ---
Test Reason : Blood Pressure : / mmHG Vent. Rate : 068 BPM Atrial Rate : 277 BPM P-R Int : 000 ms QRS Dur : 086 ms QT Int : 380 ms P-R-T Axes : 000 -22 206 degrees QTc Int : 404 ms ATRIAL FIBRILLATION POSSIBLE ANTERIOR INFARCT , AGE UNDETERMINED ABNORMAL ECG NO PREVIOUS ECGS AVAILABLE Confirmed by RODO CONKLIN MD ([id number]) on 01/26/2018 1:36:12 PM Referred By: Confirmed By:RODO CONKLIN MD
--- NOTE | 2018-01-26 14:03 | PN ---
Physical Exam: SUBJECTIVE: Patient seen and examined at bedside this morning. She has no active complaints. OBJECTIVE: Vital Signs Period Temp Pulse Resp BP Sys/Pabon Pulse Ox Last 24 Hr 97.4 F-98.1 F 73-80 18-18 133-157/66-76 98 GENERAL: The patient is awake, alert, and oriented x3, in no acute distress. HEAD: Normal with no signs of trauma. EYES: PERRL, EOMI, sclera anicteric, conjunctiva clear. ENT: Ears normal, nares patent, oropharynx clear without exudates, moist mucous membranes. NECK: Trachea midline, full range of motion, supple. LUNGS: Breath sounds equal, clear to auscultation bilaterally. HEART: Regular rate and rhythm, S1, S2 without murmur, rub or gallop. ABDOMEN: Soft, nontender, nondistended, normoactive bowel sounds. EXTREMITIES: 2+ pulses, warm, well-perfused, no edema. NEUROLOGICAL: Cranial nerves II through XII grossly intact. Normal speech, gait not observed. PSYCH: Normal mood, normal affect. SKIN: Warm, dry, normal turgor, no rashes or lesions noted Laboratory Results - last 24 hr 01/26/18 01/26/18 01/26/18 07:35 07:35 07:35 WBC 14.9 H RBC 4.11 Hgb 12.2 Hct 36.7 MCV 89.5 MCH 29.7 MCHC 33.2 RDW 14.6 Plt Count 382 D MPV 6.6 L Absolute Neuts (auto) 12.7 H Neutrophils % 85.3 H D Lymphocytes % 5.9 L D Monocytes % 7.7 Eosinophils % 0.3 Basophils % 0.8 Nucleated RBC % 0 PT with INR 12.70 INR 1.12 H Sodium 137 Potassium 4.3 Chloride 98 Carbon Dioxide 28 Anion Gap 11 BUN 8 Creatinine 0.5 L Creat Clearance w eGFR > 60 Random Glucose 90 Calcium 8.8 Phosphorus 3.5 Magnesium 2.3 01/26/18 11:00 WBC 14.0 H RBC 4.16 Hgb 12.1 Hct 37.6 MCV 90.4 MCH 29.0 MCHC 32.0 RDW 14.5 Plt Count 404 MPV 6.2 L Absolute Neuts (auto) 12.0 H Neutrophils % 85.5 H Lymphocytes % 7.3 L D Monocytes % 6.2 Eosinophils % 0.3 Basophils % 0.7 Nucleated RBC % 0 PT with INR INR Sodium Potassium Chloride Carbon Dioxide Anion Gap BUN Creatinine Creat Clearance w eGFR Random Glucose Calcium Phosphorus Magnesium Active Medications Generic Name Dose Route Start Last Admin Trade Name Jaymeq PRN Reason Stop Dose Admin Acetaminophen 650 mg 01/25/18 07:00 01/26/18 06:16 Tylenol - PO Not Given AM [facility] Atorvastatin Calcium 20 mg 01/25/18 22:00 01/25/18 22:08 Lipitor - PO 20 mg HS [facility] Administration Clotrimazole 1 applic 01/25/18 10:00 01/26/18 12:23 Lotrisone Cream (Small Tube) TP 1 applic BID [facility] Administration Digoxin 0.125 mg 01/25/18 10:00 01/26/18 11:08 Lanoxin - PO 0.125 mg DAILY [facility] Administration Docusate Sodium 300 mg 01/25/18 22:00 01/25/18 22:08 Colace - PO 300 mg HS [facility] Administration Dorzolamide HCl 1 drop 01/25/18 10:00 01/26/18 12:22 Trusopt 2% OU 1 drop BID [facility] Administration Enoxaparin Sodium 45 mg 01/25/18 17:00 01/26/18 06:15 Lovenox - SQ 45 mg BID@0500,1700 [facility] Administration Metoprolol Succinate 50 mg 01/25/18 10:00 01/26/18 11:09 Toprol Xl - PO 50 mg DAILY [facility] Administration Tramadol HCl 50 mg 01/25/18 14:04 01/25/18 15:00 Ultram - PO 50 mg Q8H PRN Administration PAIN LEVEL 6-10 ASSESSMENT/PLAN: 87 yo female with PMH HTN, HLD, A-fib, Left hip surgery x 2 since november admitted for observation following formation of a DVT in her LLL while on Xarelto. #DVT -Etiology of Xarelto failure is unknown, pt not on any CY inducers -Hold Xarelto -Patient bridged from heparin gtt to Lovenox -Continue Lovenox 45mg SQ BID -Repeat Duplex US of LLE (01/26/18) revealed DVT noted in the left mid calf soleal vein with no flow and no compression. Flow and compression is demonstrated in the left peroneal vein and left popliteal vein. -Will await follow-up recommendations from hematology -Pt without any respiratory symptom, tachycardia, or hemodynamic instability. Will hold off on CTA chest. #Atrial Fibrillation -Pt rate is currently well controlled and she is hemodynamically stable -Toprol XL 50 mg PO Daily -Digoxin 0.125 mg PO Daily #Elevated WBC -Pt today presented with leukocytosis (14.9 WBC) with left shift. -No focal symptoms. -Urinalysis ordered. #Hyperlipidemia -Lipitor 20 mg PO HS #DVT Prophylaxis -known DVT on LLE, currently on Lovenox #FEN -not on any standing fluids -electrolytes wnl, routine bmp monitoring -sodium restricted, diabetic diet #Disposition -able to contact HCP, she will fax advance directives Visit type - Emergency Visit Emergency Visit: Yes ED Registration Date: 01/25/18 Care time: The patient presented to the Emergency Department on the above date and was hospitalized for further evaluation of their emergent condition. - New Patient This patient is new to me today: Yes Date on this admission: 01/26/18 - Critical Care Critical Care patient: No
[2018-01-26 16:54] LABS: URINE APPEARANCE SL CLOUDY; URINE COLOR YELLOW
[2018-01-26 16:55] LABS: URINE BILIRUBIN NEGATIVE (<2.0 mg/dL); URINE GLUCOSE (UA) NEGATIVE (NEGATIVE); URINE KETONE NEGATIVE (NEGATIVE)
[2018-01-26 16:56] LABS: URINE LEUK ESTERASE Trace-lysed (NEGATIVE); URINE NITRITE NEGATIVE (NEGATIVE); URINE PROTEIN NEGATIVE (NEGATIVE); URINE UROBILINOGEN NORMAL mg/dL (0.2-1.0)
--- NOTE | 2018-01-26 21:13 | PN ---
Progress Note (short form) - Note Progress Note: Patient seen and examined denies any specific complaints Last Vital Signs Temp Pulse Resp BP Pulse Ox 98.1 F 83 18 152/74 98 01/26/18 18:00 01/26/18 18:00 01/26/18 18:00 01/26/18 18:00 01/26/18 09:00 Cor: RSR, No murmurs, No gallops Lungs: Clear to P&A Abd: Soft, Normal bowel sounds, No organomegaly Ext:No significant edema Abnormal Lab Results 01/26/18 01/26/18 01/26/18 07:35 07:35 07:35 WBC 14.9 H MPV 6.6 L Absolute Neuts (auto) 12.7 H Neutrophils % 85.3 H D Lymphocytes % 5.9 L D INR 1.12 H Creatinine 0.5 L 01/26/18 11:00 WBC 14.0 H MPV 6.2 L Absolute Neuts (auto) 12.0 H Neutrophils % 85.5 H Lymphocytes % 7.3 L D INR Creatinine Active Medications Generic Name Dose Route Start Last Admin Trade Name Jaymeq PRN Reason Stop Dose Admin Acetaminophen 650 mg 01/25/18 07:00 01/26/18 06:16 Tylenol - PO Not Given AM [facility] Atorvastatin Calcium 20 mg 01/25/18 22:00 01/25/18 22:08 Lipitor - PO 20 mg HS [facility] Administration Clotrimazole 1 applic 01/25/18 10:00 01/26/18 12:23 Lotrisone Cream (Small Tube) TP 1 applic BID [facility] Administration Digoxin 0.125 mg 01/25/18 10:00 01/26/18 11:08 Lanoxin - PO 0.125 mg DAILY [facility] Administration Docusate Sodium 300 mg 01/25/18 22:00 01/25/18 22:08 Colace - PO 300 mg HS [facility] Administration Dorzolamide HCl 1 drop 01/25/18 10:00 01/26/18 12:22 Trusopt 2% OU 1 drop BID [facility] Administration Enoxaparin Sodium 45 mg 01/25/18 17:00 01/26/18 18:20 Lovenox - SQ 45 mg BID@0500,1700 [facility] Administration Metoprolol Succinate 50 mg 01/25/18 10:00 01/26/18 11:09 Toprol Xl - PO 50 mg DAILY [facility] Administration Tramadol HCl 50 mg 01/25/18 14:04 01/25/18 15:00 Ultram - PO 50 mg Q8H PRN Administration PAIN LEVEL 6-10 A/P 87 yo female with PMH HTN, HLD, A-fib, Left hip surgery x 2 since november admitted for observation following LLE DVT, noted at SNF , while on xeralto for afib Left soleal vein DVT --while on xeralto for fib lovenox bridging to coumadin close monitoring of INR/CBC discussed with patient Also with weight loss/cachectic --discussed with patient --patint does not want aggressive w/u like CT scans/GI procedures for w/u of wt. loss to r/o occult malignancy. she understands that we may be missing occult malignancy bit wantss to be conservative given her age, functional status will discuss with primary team
[2018-01-26] MEDS: ATORVASTATIN CA 20 MG TABLET (FP) PO SCH (22:20)
[2018-01-26] MEDS: DOCUSATE SODIUM 100 MG CAPSULE (FP) PO SCH (22:22)
[2018-01-27] MEDS: ENOXAPARIN NA (PORCINE) 60 MG/0.6 ML DISP.SYRIN SQ SCH ×2 (06:24→17:27)
[2018-01-27] MEDS: ACETAMINOPHEN 325 MG TABLET (FP) PO SCH (06:25)
[2018-01-27 06:52] LABS: BASO % 0.9 % (0-2.0); EOS % 1.8 % (0-4.5); HEMATOCRIT 35.5 % (32.4-45.2); LYMPH % 19.6 % (8-40); MCH 29.8 pg (25.7-33.7); MCHC 33.9 g/dl (32.0-36.0); MEAN PLT VOLUME 6.2 fl (7.5-11.1); MONO % 8.5 % (3.8-10.2); NEUT % 69.2 % (42.8-82.8); PLATELET COUNT 357 K/MM3 (134-434); RBC 4.03 M/mm3 (3.60-5.2); RDW 14.4 % (11.6-15.6); WHITE BLOOD COUNT 7.8 K/mm3 (4.0-10.0)
[2018-01-27 07:12] LABS: ANION GAP 12 MMOL/L (8-16); BLOOD UREA NITROGEN 8 mg/dL (7-18); CALCIUM 8.6 mg/dL (8.5-10.1); CHLORIDE 99 mmol/L (98-107); CO2 26 mmol/L (21-32); CREATININE 0.5 mg/dL (0.55-1.02); GLUCOSE,RANDOM 92 mg/dL (74-106); POTASSIUM 3.9 mmol/L (3.5-5.1); SODIUM 137 mmol/L (136-145)
[2018-01-27] MEDS ORDERED: PT OWN MED DRAWER 7, Y5N ONE (11:33)
[2018-01-27] MEDS: DIGOXIN 0.125 MG TABLET (FP) PO SCH (11:36)
[2018-01-27] MEDS: DORZOLAMIDE 2% HCL OPHTHALMIC SOLUTION 10 ML BOTTLE OU SCH ×2 (11:38→21:35)
[2018-01-27] MEDS: CLOTRIMAZOLE/BETAMET DIPROP 15 GM TUBE TP SCH ×2 (11:38→21:35)
[2018-01-27 14:14] VITALS: BMI 17.5
--- NOTE | 2018-01-27 14:47 | PN ---
Teaching Attending Note Name of Resident: Padmini Sevilla ATTENDING PHYSICIAN STATEMENT I saw and evaluated the patient. I reviewed the resident's note and discussed the case with the resident. I agree with the resident's findings and plan as documented. SUBJECTIVE:asymptomatic. states she wants to go back to [facility]. denies Cp, SOB, fever, chills, N/V/C/D no leg pain. admits to weight loss states she lost 6 lbs in the past month with poor appetite also been mostly bed bound since recent surgery OBJECTIVE: Last Vital Signs Temp Pulse Resp BP Pulse Ox 98.0 F 90 18 139/52 98 01/27/18 09:38 01/27/18 11:36 01/27/18 09:38 01/27/18 09:38 01/27/18 10:00 General NAD, bitemporal wasting, prominent cheekbones, sunken eyes, prominent clavicles, thin extremities CV S1 S2 irregular Lungs CTA B/L no wheezing/rales/rhonchi Extremities no pedal edema. no calf tenderness ASSESSMENT AND PLAN: 87 yo F with PMhx of Left hip surgery x2 since November, Afib, HTN, HLD, on xarelto , sent from [place] for concerns of LLE DVT on outpatient imaging. 1. LLE Soleal vein DVT-failed NOAC therapy. recent surgery and immobility. started on full dose lovenox. will need to bridged to coumadin. this can be done as outpatient with frequent INR checks. start coumadin 5mg today. hematology consulted 2. Leukocytosis- likely reactive. now resolved. no signs of infection. UA and CXR negative. no indication for abx 3. Severe malnutrition- evident by body habitus and BMI with weight loss. as per patient seems she had regular routine cancer surveillance (colonoscopy and mammogram) encouraged pt to f/u with fork repairer as outpatient who can schedule further workup if pt is interested (was unsure if she wants any more testing). encouraged ensure and magic cup 4. Recent left hip surgery x 2 since November 5. Afib- rate control. lovenox-coumadin bridge with frequent INR checks 6. HTN 7. dyslipidemia-statin 8. medically optimized for transfer to [facility]. will need INR check in 2 days
[2018-01-27] MEDS ORDERED: WARFARIN NA 5 MG TABLET (UD) PO SCH (18:00)
--- NOTE | 2018-01-27 18:51 | PN ---
Physical Exam: SUBJECTIVE: Patient seen and examined this morning. She has no active complaints. No acute events overnight. OBJECTIVE: Vital Signs Period Temp Pulse Resp BP Sys/Pabon Pulse Ox Last 24 Hr 97.6 F-98.0 F 76-90 18-20 127-143/52-74 97-98 GENERAL: The patient is awake, alert, and fully oriented, in no acute distress. Patient appears cachectic with BMI of 17.5 HEAD: Normal with no signs of trauma. EYES: PERRLA, EOMI, sclera anicteric, conjunctiva clear. NECK: Trachea midline, full range of motion, supple. LUNGS: Breath sounds equal, clear to auscultation bilaterally. HEART: Regular rate and rhythm, S1, S2 without murmur, rub or gallop. ABDOMEN: Soft, nontender, nondistended, normoactive bowel sounds. EXTREMITIES: 2+ pulses, warm, well-perfused, no edema. NEUROLOGICAL: Cranial nerves II through XII grossly intact. Normal speech, gait not observed. PSYCH: Normal mood, normal affect. SKIN: Warm, dry, normal turgor, no rashes or lesions noted Laboratory Results - last 24 hr 01/27/18 01/27/18 06:30 06:30 WBC 7.8 RBC 4.03 Hgb 12.0 Hct 35.5 MCV 88.0 MCH 29.8 MCHC 33.9 RDW 14.4 Plt Count 357 MPV 6.2 L Absolute Neuts (auto) 5.4 Neutrophils % 69.2 Lymphocytes % 19.6 D Monocytes % 8.5 Eosinophils % 1.8 D Basophils % 0.9 Nucleated RBC % 0 Sodium 137 Potassium 3.9 Chloride 99 Carbon Dioxide 26 Anion Gap 12 BUN 8 Creatinine 0.5 L Creat Clearance w eGFR > 60 Random Glucose 92 Calcium 8.6 Active Medications Generic Name Dose Route Start Last Admin Trade Name Freq PRN Reason Stop Dose Admin Acetaminophen 650 mg 01/25/18 07:00 01/27/18 06:25 Tylenol - PO Not Given AM CASPER Atorvastatin Calcium 20 mg 01/25/18 22:00 01/26/18 22:20 Lipitor - PO 20 mg HS CASPER Administration Clotrimazole 1 applic 01/25/18 10:00 01/27/18 11:38 Lotrisone Cream (Small Tube) TP 1 applic BID CASPER Administration Digoxin 0.125 mg 01/25/18 10:00 01/27/18 11:36 Lanoxin - PO 0.125 mg DAILY CASPER Administration Docusate Sodium 300 mg 01/25/18 22:00 01/26/18 22:22 Colace - PO 300 mg HS CASPER Administration Dorzolamide HCl 1 drop 01/25/18 10:00 01/27/18 11:38 Trusopt 2% OU 1 drop BID CASPER Administration Enoxaparin Sodium 45 mg 01/25/18 17:00 01/27/18 17:27 Lovenox - SQ 45 mg BID@0500,1700 CASPER Administration Metoprolol Succinate 50 mg 01/25/18 10:00 01/27/18 11:36 Toprol Xl - PO 50 mg DAILY CASPER Administration Tramadol HCl 50 mg 01/25/18 14:04 01/25/18 15:00 Ultram - PO 50 mg Q8H PRN Administration PAIN LEVEL 6-10 Warfarin Sodium 5 mg 01/27/18 18:00 01/27/18 17:25 Coumadin - PO 5 mg DAILY@1800 CASPER Administration ASSESSMENT/PLAN: 87 yo female with PMH HTN, HLD, A-fib, Left hip surgery x 2 since november admitted for observation following formation of a DVT in her LLE while on Xarelto. #DVT -Etiology of Xarelto failure is unknown, pt not on any CY inducers -Hold Xarelto -Patient bridged from heparin gtt to Lovenox -Repeat Duplex US of LLE (01/26/18) revealed DVT noted in the left mid calf soleal vein with no flow and no compression. Flow and compression is demonstrated in the left peroneal vein and left popliteal vein. -Dr. Franks consulted. Recommendations appreciated. -Will bridge Lovenox to coumadin. Coumadin 5 mg started. -For INR tomorrow. -Pt without any respiratory symptom, tachycardia, or hemodynamic instability. Will hold off on CTA chest. #Severe protein malnutrition -Pt looks cachectic as seen on physical exam and BMI. Patient also reported weight loss and anorexia. -As per pt, she reported to have annual physical exam with routine screening with her PCP. -Dr. Franks talked to pt to have further workup as an outpatient but pt patient does not want aggressive work-ups to be done to r/o malignancy. She just wants to receive conservative management given her age and functional status. -Ordered ensure and magic cup. #Atrial Fibrillation -Pt rate is currently well controlled and she is hemodynamically stable -Toprol XL 50 mg PO Daily -Digoxin 0.125 mg PO Daily #Elevated WBC: resolved -WBC 7.8. -Urinalysis normal. #Hyperlipidemia -Lipitor 20 mg PO HS #DVT Prophylaxis -known DVT on LLE, currently on Lovenox #FEN -not on any standing fluids -electrolytes wnl, routine bmp monitoring -sodium restricted, diabetic diet #Disposition -for discharge tomorrow pending placement Visit type - Emergency Visit Emergency Visit: Yes ED Registration Date: 01/25/18 Care time: The patient presented to the Emergency Department on the above date and was hospitalized for further evaluation of their emergent condition. - New Patient This patient is new to me today: Yes Date on this admission: 01/27/18 - Critical Care Critical Care patient: No
[2018-01-27] MEDS: ATORVASTATIN CA 20 MG TABLET (FP) PO SCH (21:29)
[2018-01-27] MEDS: DOCUSATE SODIUM 100 MG CAPSULE (FP) PO SCH (21:29)
[2018-01-28] MEDS: ENOXAPARIN NA (PORCINE) 60 MG/0.6 ML DISP.SYRIN SQ SCH (05:51)
[2018-01-28] MEDS: ACETAMINOPHEN 325 MG TABLET (FP) PO SCH (06:10)
[2018-01-28] MEDS ORDERED: MINERAL OIL ENEMA 133 ML ENEMA PR ONE (07:22)
[2018-01-28 08:32] LABS: INR 1.17 (0.83-1.09); PROTHROMBIN TIME (PATIENT) 13.2 SEC (9.7-13.0)
[2018-01-28 10:20] VITALS: BP 143/81; PULSE 94; TEMP 98
[2018-01-28] MEDS: CLOTRIMAZOLE/BETAMET DIPROP 15 GM TUBE TP SCH (10:56)
[2018-01-28] MEDS: DORZOLAMIDE 2% HCL OPHTHALMIC SOLUTION 10 ML BOTTLE OU SCH (10:56)
[2018-01-28] MEDS: DIGOXIN 0.125 MG TABLET (FP) PO SCH (10:57)
--- NOTE | 2018-01-28 13:34 | PN ---
Teaching Attending Note Name of Resident: Padmini Sevilla ATTENDING PHYSICIAN STATEMENT I saw and evaluated the patient. I reviewed the resident's note and discussed the case with the resident. I agree with the resident's findings and plan as documented. SUBJECTIVE:asymptomatic. denies Cp, SOB, fever, chills, N/V/C/D OBJECTIVE: Last Vital Signs Temp Pulse Resp BP Pulse Ox 98.0 F 94 H 18 143/81 98 01/28/18 09:00 01/28/18 10:57 01/28/18 09:00 01/28/18 09:00 01/27/18 20:22 General NAD, bitemporal wasting, prominent cheekbones, sunken eyes, prominent clavicles, thin extremities ASSESSMENT AND PLAN: 87 yo F with PMhx of Left hip surgery x2 since November, Afib, HTN, HLD, on xarelto , sent from [place] for concerns of LLE DVT on outpatient imaging. 1. LLE Soleal vein DVT-failed NOAC therapy. on lovenox-coumadin bridge. will need to have daily or Q48H INR checks till INR is therapeutic.can f/uw ith heme for outpatient hypercoag workup 2. Leukocytosis- likely reactive. now resolved. no signs of infection. UA and CXR negative. no indication for abx 3. Severe malnutrition- evident by body habitus and BMI with weight loss. encourage po intake with ensures. recommended outpatient cancer screeening. can d/w heme or PMD as pt desires. unclear if she is interested. ("what are you going to do with me at my age") 4. Recent left hip surgery x 2 since November 5. Afib- rate control. lovenox-coumadin bridge with frequent INR checks 6. HTN 7. dyslipidemia-statin 8. medically optimized for transfer to [facility]. will need INR check in 2 days
--- NOTE | 2018-01-28 14:18 | DS ---
Physical Exam: SUBJECTIVE: Patient seen and examined OBJECTIVE: Vital Signs Period Temp Pulse Resp BP Sys/Pabon Pulse Ox Last 24 Hr 97.6 F-98.5 F 77-94 18-18 127-152/65-81 98 PHYSICAL EXAM GENERAL: The patient is awake, alert, and fully oriented, in no acute distress. HEAD: Normal with no signs of trauma. EYES: PERRL, extraocular movements intact, sclera anicteric, conjunctiva clear. ENT: Ears normal, nares patent, oropharynx clear without exudates, moist mucous membranes. NECK: Trachea midline, full range of motion, supple. LUNGS: Breath sounds equal, clear to auscultation bilaterally, no wheezes, no crackles, no accessory muscle use. HEART: Regular rate and rhythm, S1, S2 without murmur, rub or gallop. ABDOMEN: Soft, nontender, nondistended, normoactive bowel sounds, no guarding, no rebound, no hepatosplenomegaly, no masses. EXTREMITIES: 2+ pulses, warm, well-perfused, no edema. NEUROLOGICAL: Cranial nerves II through XII grossly intact. Normal speech, gait not observed. PSYCH: Normal mood, normal affect. SKIN: Warm, dry, normal turgor, no rashes or lesions noted. LABS Laboratory Results - last 24 hr 01/28/18 07:00 PT with INR 13.20 H INR 1.17 H Imaging: -Duplex US of LLE (01/26/18) revealed DVT noted in the left mid calf soleal vein with no flow and no compression. Flow and compression is demonstrated in the left peroneal vein and left popliteal vein. HOSPITAL COURSE: Date of Admission:01/25/18 Date of Discharge: 01/28/18 Patient is an 87 yo female with past medical history of HTN, HLD, A-fib, Left hip surgery x 2 since november presented from [facility] after her leg was noted to be swollen there and she was diagnosed with a LLE DVT on u/s. She says they noted her left leg to be swollen for a few days so they did an ultrasound which showed a clot. Of note the pt has been on Xarelto 20 mg PO Daily for AC. She denies any headache, vision changes, SOB, Chest pain, pleuritic pain, cough , or pain in her legs. She spends a couple of hours with PT daily but is otherwise confined to her bed. Patient was admitted for DVT despite being on Xarelto. Nehemiah-onc consulted. Xarelto was held and patient was started on heparin gtt then bridged to Lovenox 45mg sq BID. Duplex US of LLE revealed DVT noted in left mid calf soleal vein. Dr. Franks talked to pt to have further workup as an outpatient but patient does not want aggressive work-ups to be done to r/o malignancy. She just wants to receive conservative management given her age and functional status. Patient then was bridged from Lovenox to Coumadin 5 mg daily, with instructions to continue both until therapeutic INR attained. PT evaluation requested and patient was discharged back to [facility] to continue anticoagulation treatment as instructed. Minutes to complete discharge: 45 Discharge Summary Reason For Visit: DEEP VEIN THROMBOSIS (DVT) Condition: Stable - Instructions Diet, Activity, Other Instructions: You were brought to the hospital because you were found to have a blood clot on your left leg on ultrasound. You need to try to increase your calorie consumption. Try supplementing with Ensure shakes or puddings to consume enough calories/protein. Discuss with the development lead (Dr Franks) and your primary care doctor about doing a cancer workup. Take stool softeners as needed to ensure regular bowel movements You were seen by a development lead (Dr. Casarez) and you were given anti- clotting medications that would prevent further formation of clots. Please call her to set an appointment for follow-up. You will be given new medications to start at home. Please take them as prescribed. You need to follow up with your doctor regarding these medications. 1. Lovenox 45mg subcutaneous twice daily until your INR is in the therapeutic range for 2 days (INR 2-3) 2. Coumadin 5 mg once a day. Your Xarelto was stopped. Do not take this medication anymore. Continue your home medications. You will have to follow-up with your PCP to have your INR levels checked every 2 days. (Mon, Wed, Fri). Call 911 or go to ED if any new symptoms occur or new concerns. Referrals: Tiny Casarez MD [Staff Physician] - 1 Week Disposition: HALFWAY FACILITY - Home Medications Comprehensive Discharge Medication List: Ambulatory Orders Acetaminophen 650 mg PO AM 01/02/18 Clotrimazole/Betamet Diprop [Lotrisone -] 1 applic TP BID 01/02/18 Digoxin [Lanoxin -] 0.125 mg PO DAILY 01/02/18 Diphenhydramine [Benadryl 12.5 MG/5 ML Oral Solution -] 25 mg PO HS 01/02/18 Docusate Sodium [Colace -] 300 mg PO HS 01/02/18 Dorzolamide HCl [Trusopt 2% -] 1 drop OU BID 01/02/18 Metoprolol Succinate 50 mg PO DAILY 01/02/18 Oxycodone HCl/Acetaminophen [Percocet 5-325 mg Tablet] 1 tab PO DAILY 01/02/18 Oxycodone HCl/Acetaminophen [Percocet 5-325 mg Tablet] 1 tab PO Q6H PRN Simvastatin 40 mg PO HS 01/02/18 Tramadol HCl 50 mg PO QID PRN #12 tablet MDD 4 01/02/18 Enoxaparin [Lovenox -] 45 mg SQ BID@0500,1700 2 Days #4 disp.syrin 01/27/18 Warfarin Sodium [Coumadin] 5 mg PO DAILY #30 tablet 01/28/18 This patient is new to me today: Yes Date on this admission: 01/29/18 Emergency Visit: Yes ED Registration Date: 01/25/18 Care time: The patient presented to the Emergency Department on the above date and was hospitalized for further evaluation of their emergent condition. Critical Care patient: No - Discharge Referral Referred to [facility] No
== END 2018-01-28 13:57 ==
LOC: JER 00:14 → UNDOADMOB 02:59 → JERBED 02:59 → INTOOBSV 02:59 → JERBED 04:13 → J5S 05:17 → JERBED 05:17
PROVIDERS: ADMIT Internal Medicine; ATTEND Internal Medicine
PROC: 3E033GC Introduction of Other Therapeutic Substance into Peripheral Vein, Percutaneous Approach (ICD-10-PCS; principal; 2018-01-25)
DX: I82.4Z2 Acute embolism and thrombosis of unspecified deep veins of left distal lower extremity (principal); E88.09 Other disorders of plasma-protein metabolism, not elsewhere classified; I10 Essential (primary) hypertension; I48.91 Unspecified atrial fibrillation; E78.5 Hyperlipidemia, unspecified; D72.829 Elevated white blood cell count, unspecified; Z79.01 Long term (current) use of anticoagulants; E43 Unspecified severe protein-calorie malnutrition; Z68.1 Body mass index [BMI] 19.9 or less, adult
CPT/HCPCS: 36415; 80048; 80053; 81003; 83735; 84100; 85025; 85610; 85730; 93005; 93010; 93970-TC; 99282-25; G0378; J1644

== ENCOUNTER 2018-03-29 08:49 | Emergency (ER) | payer OTHER ==
[2018-03-29 09:06] VITALS: TEMP 97.9; BMI 17.6
--- NOTE | 2018-03-29 09:11 | PDOC ---
History of Present Illness - General Chief Complaint: Injury Stated Complaint: FALL Time Seen by Provider: 03/29/18 09:07 History Source: Patient Exam Limitations: No Limitations - History of Present Illness Initial Comments: 87 yo F history DVT, afib, HTN, HL presents s/p mechanical fall. She states that her walker got caught in the wheelchair where she had been sitting, so she fell and hit the side rail. She states she had swelling to the R frontal area at the time, which resolved with ice pack. Denies any pain at present. She states she has an injury to the R forearm. Past History - Past Medical History Allergies/Adverse Reactions: Allergies Allergy/AdvReac Type Severity Reaction Status Date / Time No Known Allergies Allergy Verified 03/20/18 12:02 Home Medications: Ambulatory Orders Acetaminophen [Tylenol] 325 mg PO QID PRN 03/29/18 Digoxin [Lanoxin -] 0.125 mg PO DAILY 03/29/18 Diphenhydramine [Benadryl Oral Solution -] 12.5 mg PO HS 03/29/18 Docusate Sodium [Colace -] 300 mg PO HS 03/29/18 Dorzolamide HCl [Trusopt 2%] 1 drop OU BID 03/29/18 Lactobacillus Acidophilus [Acidophilus] 1 each PO TID 03/29/18 Metoprolol Succinate [Toprol Xl] 50 mg PO DAILY 03/29/18 Polyethylene Glycol 3350 [Miralax (For Daily Use) -] 17 gm PO BID 03/29/18 Sennosides [Senokot] 2 tab PO HS 03/29/18 Simvastatin [Zocor -] 40 mg PO HS 03/29/18 Tramadol HCl 50 mg PO QID PRN 03/29/18 metroNIDAZOLE 0.75% VAG. GEL [Metrogel 0.75% *Vaginal Gel* -] 1 applic VG HS 09/10 Cardiac Disorders: Yes (A fib) CVA: No COPD: No Dementia: No Diabetes: No HTN: Yes Hypercholesterolemia: Yes Seizures: No - Surgical History Neurologic Surgery: Yes (laminectomy) Orthopedic Surgery: Yes (left hip surgery) - Immunization History Immunization Up to Date: Yes - Suicide/Smoking/Psychosocial Hx Smoking History: Never smoked Have you smoked in the past 12 months: No Information on smoking cessation initiated: No Hx Alcohol Use: No Drug/Substance Use Hx: No Substance Use Type: None Hx Substance Use Treatment: No Review of Systems - Review of Systems Able to Perform ROS?: Yes Comments:: GENERAL/CONSTITUTIONAL: No fever or chills. No weakness. HEAD, EYES, EARS, NOSE AND THROAT: No change in vision. No ear pain or discharge. No sore throat. CARDIOVASCULAR: No chest pain or shortness of breath. RESPIRATORY: No cough, wheezing, or hemoptysis. GASTROINTESTINAL: No nausea, vomiting, diarrhea or constipation. GENITOURINARY: No dysuria, frequency, or change in urination. MUSCULOSKELETAL: No joint or muscle swelling or pain. No neck or back pain. SKIN: +Skin tears to R forearm. +Healing L heel ulcer. NEUROLOGIC: No headache, vertigo, loss of consciousness, or change in strength/ sensation. ENDOCRINE: No increased thirst. No abnormal weight change. HEMATOLOGIC/LYMPHATIC: No anemia, easy bleeding, or history of blood clots. ALLERGIC/IMMUNOLOGIC: No hives or skin allergy. *Physical Exam - Vital Signs Last Vital Signs Temp Pulse Resp BP Pulse Ox 97.9 F 80 18 187/105 H 99 03/29/18 09:00 03/29/18 09:00 03/29/18 09:00 03/29/18 09:00 03/29/18 09:00 - Physical Exam Comments: GENERAL: Awake, alert, and fully oriented, in no acute distress HEAD: No signs of trauma. No hematomas visualized or palpated. EYES: PERRLA, EOMI, sclera anicteric, conjunctiva clear ENT: Auricles normal inspection, hearing grossly normal, nares patent, oropharynx clear without exudates. Moist mucosa NECK: Normal ROM, supple, no lymphadenopathy, JVD, or masses LUNGS: Breath sounds equal, clear to auscultation bilaterally. No wheezes, and no crackles HEART: Regular rate and rhythm, normal S1 and S2, no murmurs, rubs or gallops ABDOMEN: Soft, nontender, normoactive bowel sounds. No guarding, no rebound. No masses EXTREMITIES: Normal range of motion, no edema. No clubbing or cyanosis. No cords, erythema, or tenderness NEUROLOGICAL: Cranial nerves II through XII grossly intact. Normal speech. Motor and sensation intact. SKIN: Warm, Dry, normal turgor. 4x2cm L heel ulcer, +granulation tissue, no signs of infection. R forearm with 2 skin tears, slight oozing of blood, + devitalized tissue. ED Treatment Course - LABORATORY CBC & Chemistry Diagram: 03/29/18 09:32 03/29/18 09:32 Medical Decision Making - Medical Decision Making R forearm wounds dressed with xeroform and sterile gauze wrap. L heel wound dressing changed, dressed with xeroform and sterile gauze. CTH obtained, no acute findings. She is reportedly off coumadin due to falls, which makes sense in light of lab findings. Stable for DC home. *DC/Admit/Observation/Transfer Diagnosis at time of Disposition: Fall Qualifiers: Encounter type: initial encounter Qualified Code(s): W19.XXXA - Unspecified fall, initial encounter Head injury Qualifiers: Encounter type: initial encounter Qualified Code(s): S09.90XA - Unspecified injury of head, initial encounter - Discharge Dispostion Disposition: HOME Condition at time of disposition: Stable Decision to Admit order: No - Referrals Referrals: Karl Kenny MD [Primary Care Provider] - - Patient Instructions Printed Discharge Instructions: How to Prevent Falls, DI for Closed Head Injury - Post Discharge Activity
[2018-03-29 09:55] LABS: BASO % 0.5 % (0-2.0); EOS % 0.2 % (0-4.5); HEMATOCRIT 39.9 % (32.4-45.2); HEMOGLOBIN 13.7 GM/dL (10.7-15.3); LYMPH % 11.5 % (8-40); MCH 30.4 pg (25.7-33.7); MCHC 34.3 g/dl (32.0-36.0); MEAN CELL VOLUME 88.8 fl (80-96); MEAN PLT VOLUME 6.8 fl (7.5-11.1); MONO % 5.9 % (3.8-10.2); NEUT % 81.9 % (42.8-82.8); PLATELET COUNT 306 K/MM3 (134-434); WHITE BLOOD COUNT 8.6 K/mm3 (4.0-10.0)
[2018-03-29 10:11] LABS: INR 1.64 (0.83-1.09); PROTHROMBIN TIME (PATIENT) 19.5 SEC (9.7-13.0)
[2018-03-29 10:14] LABS: ACTIVATED PTT 37.3 SECONDS (25.2-36.5)
[2018-03-29 10:28] LABS: ALBUMIN 3.6 g/dl (3.4-5.0); ALK PHOS 105 U/L (45-117); ANION GAP 11 MMOL/L (8-16); BILIRUBIN,TOTAL 0.5 mg/dL (0.2-1); BLOOD UREA NITROGEN 8 mg/dL (7-18); CALCIUM 8.6 mg/dL (8.5-10.1); CHLORIDE 98 mmol/L (98-107); CO2 27 mmol/L (21-32); CREATININE 0.5 mg/dL (0.55-1.3); GLUCOSE,RANDOM 89 mg/dL (74-106); POTASSIUM 3.7 mmol/L (3.5-5.1); SGOT/AST 26 U/L (15-37); SGPT/ALT 23 U/L (13-61); SODIUM 136 mmol/L (136-145); TOT PROT 6.9 g/dl (6.4-8.2)
[2018-03-29 12:06] VITALS: BP 132/58; PULSE 81
== END 2018-03-29 12:38 ==
LOC: JER 08:49
DX: S09.8XXA Other specified injuries of head, initial encounter (principal); S50.812A Abrasion of left forearm, initial encounter; W05.0XXA Fall from non-moving wheelchair, initial encounter; Y93.89 Activity, other specified; Y92.128 Other place in nursing home as the place of occurrence of the external cause; Y99.8 Other external cause status; L97.421 Non-pressure chronic ulcer of left heel and midfoot limited to breakdown of skin; I10 Essential (primary) hypertension; E78.5 Hyperlipidemia, unspecified; I48.91 Unspecified atrial fibrillation; Z86.718 Personal history of other venous thrombosis and embolism; Z91.81 History of falling
CPT/HCPCS: 36415; 70450-TC; 80053; 85025; 85610; 85730; 99283-25

== ENCOUNTER 2018-05-16 12:12 | Inpatient (IN) | payer OTHER ==
--- NOTE | 2018-05-16 12:33 | PDOC ---
History of Present Illness - General Chief Complaint: Injury Stated Complaint: FALL Time Seen by Provider: 05/16/18 12:23 History Source: Patient Exam Limitations: No Limitations - History of Present Illness Initial Comments: 05/16/18 17:02 Patient is an 87-year-old female history of DVT, A. fib on heparin in the group home, hyperlipidemia, presents status post mechanical fall at home. Patient states she was trying to get up from a chair without her walker when she slipped and fell to the ground. She states she landed on her butt. She denies hitting her head. She states that after she fell she was unable to get up. She states that she hurt her right leg. She states that she is unable to move it at this time. Denies numbness and tingling to the extremity denies fevers, chills, difficulty breathing, shortness of breath, chest pain, palpitations, lightheadedness, dizziness nausea, vomiting, diarrhea, frequency, urgency and hematuria. Past History - Travel Traveled outside of the country in the last 30 days: No Close contact w/someone who was outside of country & ill: No - Past Medical History Allergies/Adverse Reactions: Allergies Allergy/AdvReac Type Severity Reaction Status Date / Time No Known Allergies Allergy Verified 05/16/18 12:32 Home Medications: Ambulatory Orders Acetaminophen [Tylenol] 650 mg PO ASDIR 05/16/18 Aspirin [Aspirin EC] 325 mg PO DAILY 05/16/18 Brimonidine Tartrate [Alphagan P 0.1% -] 1 drop TID 05/16/18 Collagenase Clostridium Hist. [Santyl] 1 applic TP DAILY 05/16/18 Digoxin [Lanoxin -] 0.125 mg PO DAILY 05/16/18 Dorzolamide/Timolol/Pf [Dorzolamide-Timolol 2%-0.5%] 1 each OP DAILY 05/16/18 Heparin - 5,000 unit SQ BID 05/16/18 Latanoprostene Bunod [Vyzulta] 5 ml OP HS 05/16/18 Metoprolol Succinate 50 mg PO DAILY 05/16/18 Mupirocin Ointment [Bactroban Ointment (For Decolonization) -] 1 applic TP TID 05/16/18 Simvastatin 40 mg PO DAILY 05/16/18 Tramadol HCl 50 mg PO DAILY 05/16/18 metroNIDAZOLE 1% CREAM [Metrocream 1% Cream -] 1 applic TP DAILY 05/16/18 Cardiac Disorders: Yes (A fib) CVA: No COPD: No Dementia: No Diabetes: No HTN: Yes Hypercholesterolemia: Yes Seizures: No - Surgical History Neurologic Surgery: Yes (laminectomy) Orthopedic Surgery: Yes (left hip surgery) - Immunization History Immunization Up to Date: Yes - Suicide/Smoking/Psychosocial Hx Smoking History: Never smoked Have you smoked in the past 12 months: No Hx Alcohol Use: No Drug/Substance Use Hx: No Substance Use Type: None Hx Substance Use Treatment: No Review of Systems - Review of Systems Able to Perform ROS?: Yes Comments:: 05/16/18 15:38 CONSTITUTIONAL: Present: unable to ambulate Absent: fever, chills, diaphoresis, generalized weakness, malaise, loss of appetite HEENT: Absent: rhinorrhea, nasal congestion, throat pain, throat swelling, difficulty swallowing, mouth swelling, ear pain, eye pain, visual Changes CARDIOVASCULAR: Absent: chest pain, loss of consciousness, palpitations, irregular heart rate, peripheral edema RESPIRATORY: Absent: cough, shortness of breath, dyspnea with exertion, orthopnea, wheezing, stridor, hemoptysis GASTROINTESTINAL: Absent: abdominal pain, abdominal distension, nausea, vomiting, diarrhea, constipation, melena, hematochezia GENITOURINARY: Absent: dysuria, frequency, urgency, hesitancy, hematuria, flank pain, genital pain MUSCULOSKELETAL: Present: R hip pain/leg pain Absent: myalgia, arthralgia, joint swelling SKIN: Absent: rash, itching, pallor HEMATOLOGIC/IMMUNOLOGIC: Absent: easy bleeding, easy bruising, lymphadenopathy, frequent infections ENDOCRINE: Absent: unexplained weight gain, unexplained weight loss, heat intolerance, cold intolerance NEUROLOGIC: Absent: headache, focal weakness or paresthesias, dizziness, unsteady gait, seizure, mental status changes, bladder or bowel incontinence PSYCHIATRIC: Absent: anxiety, depression, suicidal or homicidal ideation, hallucinations. Is the patient limited Malay proficient: No *Physical Exam - Physical Exam Comments: 05/16/18 15:38 GENERAL: Well developed, well nourished. Awake and alert. No acute distress. HEENT: Normocephalic, atraumatic. PERRLA, EOMI. No conjunctival pallor. Sclera are non- icteric. Moist mucous membranes. Oropharynx is clear. NECK: Supple. Full ROM. No JVD. Carotid pulses 2+ and symmetric, without bruits. No thyromegaly. No lymphadenopathy. CARDIOVASCULAR: Irregularrly irregular rate and rhythm. No murmurs, rubs, or gallops. Distal pulses are 2+ and symmetric. PULMONARY: No evidence of respiratory distress. Lungs clear to auscultation bilaterally. No wheezing, rales or rhonchi. ABDOMINAL: Soft. Non-tender. Non-distended. No rebound or guarding. No organomegaly. Normoactive bowel sounds. MUSCULOSKELETAL R leg is shortened and externally rotated. TTP of the R femur. Unable to move the R leg at this time d/t pain. Normal range of motion at all other joints. No bony deformities or tenderness. No CVA tenderness. EXTREMITIES: No cyanosis. No clubbing. No edema. No calf tenderness. SKIN: 3cm ovoid bed sore to L heel with escar formation. Warm and dry. Normal capillary refill. No rashes. No jaundice. NEUROLOGICAL: Alert, awake, appropriate. Cranial nerves 2-12 intact. No deficits to light touch and temperature in face, upper extremities and lower extremities. No motor deficits in the in face, upper extremities and lower extremities. Normoreflexic in the upper and lower extremities. Normal speech. Toes are down- going bilaterally. Gait is normal without ataxia. PSYCHIATRIC: Cooperative. Good eye contact. Appropriate mood and affect. ED Treatment Course - LABORATORY CBC & Chemistry Diagram: 05/16/18 13:15 05/16/18 13:15 Medical Decision Making - Medical Decision Making 05/16/18 17:04 Patient is an 87-year-old female with past medical history of A. fib, DVT, on heparin for anticoagulation, hyperlipidemia, who presents to the emergency department today with right leg pain status post mechanical trip and fall. Given patient's had multiple falls and on anticoagulation, we will proceed with a full workup as well. -On exam right leg is externally rotated and shortened. Concerned for right hip fracture at this time. -X-ray confirms intertrochanteric fracture to the right leg. -Head CT is negative for bleed or fracture. -leukocytosis of 14.6, left shift. Electrolytes show hyponatremia 130. PT/INR normal at 1.02. Troponin is negative. -Consult with Dr. Mesa who agrees patient will need surgery. Requesting that anticoagulation be held. -Pending urine results. -No other bruising noted. No pain with palpation of the chest. Patient from [facility]. Will page symphony for admission at this time. EKG: rate 78 BPM, afib. L axis devation. T-wave inversions in V4-V6. Inversions since 01/25/18, appear deeper today. Pt has no active chest pain or shortness of breath 05/16/18 17:[address] Ham and discussed the case, agrees for admission to Med/surg *DC/Admit/Observation/Transfer Diagnosis at time of Disposition: Intertrochanteric fracture Qualifiers: Encounter type: initial encounter Fracture type: closed Fracture alignment: displaced Laterality: right Qualified Code(s): S72.141A - Displaced intertrochanteric fracture of right femur, initial encounter for closed fracture - Discharge Dispostion Condition at time of disposition: Guarded Decision to Admit order: Yes - Referrals - Patient Instructions - Post Discharge Activity
[2018-05-16] MEDS ORDERED: ACETAMINOPHEN 1000 MG/100 ML VIAL (NON FORMULARY) IVPB ONE (12:57)
[2018-05-16 13:23] LABS: BASO % 0.2 % (0-2.0); HEMATOCRIT 35.3 % (32.4-45.2); HEMOGLOBIN 12.4 GM/dL (10.7-15.3); LYMPH % 6.3 % (8-40); MCH 30.3 pg (25.7-33.7); MCHC 35.1 g/dl (32.0-36.0); MEAN CELL VOLUME 86.5 fl (80-96); MEAN PLT VOLUME 7.6 fl (7.5-11.1); MONO % 7.4 % (3.8-10.2); NEUT % 86.1 % (42.8-82.8); PLATELET COUNT 284 K/MM3 (134-434); RBC 4.08 M/mm3 (3.60-5.2); RDW 15.2 % (11.6-15.6); WHITE BLOOD COUNT 14.6 K/mm3 (4.0-10.0)
[2018-05-16 13:39] LABS: INR 1.02 (0.83-1.09)
[2018-05-16] MEDS ORDERED: ACETAMINOPHEN INJECTION 100 ML IVPB ONE (13:41)
[2018-05-16 14:04] LABS: ALBUMIN 3.3 g/dl (3.4-5.0); ALK PHOS 83 U/L (45-117); ANION GAP 9 MMOL/L (8-16); BILIRUBIN,TOTAL 0.8 mg/dL (0.2-1); BLOOD UREA NITROGEN 12 mg/dL (7-18); CHLORIDE 95 mmol/L (98-107); CO2 27 mmol/L (21-32); CREATININE 0.7 mg/dL (0.55-1.3); GLUCOSE,RANDOM 119 mg/dL (74-106); POTASSIUM 4.6 mmol/L (3.5-5.1); SGOT/AST 23 U/L (15-37); SGPT/ALT 24 U/L (13-61); SODIUM 130 mmol/L (136-145); TOT PROT 6.4 g/dl (6.4-8.2)
[2018-05-16] MEDS ORDERED: morphine CARPU-JECT 2 MG/1 ML DISP.SYRIN IVPUSH ONE (15:30)
[2018-05-16] MEDS ORDERED: MORPHINE SULFATE 2 MG/ML VIAL ONE (15:39)
--- NOTE | 2018-05-16 15:39 | EKG ---
Test Reason : Blood Pressure : / mmHG Vent. Rate : 078 BPM Atrial Rate : 070 BPM P-R Int : 000 ms QRS Dur : 090 ms QT Int : 352 ms P-R-T Axes : 000 -30 240 degrees QTc Int : 401 ms ATRIAL FIBRILLATION LEFT AXIS DEVIATION ABNORMAL ECG WHEN COMPARED WITH ECG OF 25-JAN-2018 04:05, BORDERLINE CRITERIA FOR ANTERIOR INFARCT ARE NO LONGER PRESENT INVERTED T WAVES HAVE REPLACED NONSPECIFIC T WAVE ABNORMALITY IN ANTERIOR LEADS Confirmed by STEPHANIE MORAN MD ([id number]) on 05/16/2018 3:39:03 PM Referred By: Confirmed By:STEPHANIE MORAN MD
[2018-05-16 17:43] LABS: URINE APPEARANCE CLEAR; URINE BILIRUBIN NEGATIVE (<2.0 mg/dL); URINE COLOR YELLOW; URINE GLUCOSE (UA) NEGATIVE (NEGATIVE); URINE KETONE NEGATIVE (NEGATIVE); URINE LEUK ESTERASE NEGATIVE (NEGATIVE); URINE NITRITE NEGATIVE (NEGATIVE); URINE PROTEIN NEGATIVE (NEGATIVE); URINE UROBILINOGEN NEGATIVE mg/dL (0.2-1.0)
--- NOTE | 2018-05-16 18:07 | HP ---
CHIEF COMPLAINT: mechanical fall HISTORY OF PRESENT ILLNESS: Patient is an 87 yo F from senior [facility], with a PMhx of DVT, L Hip fracture (01/19 from previous mechanical fall), A-fib, who presented after mechanical fall ditcher yesterday. Patient said she was trying to move from the bed to the chair where she ended up tripping. She said she landed on her butt. She complains of R leg pain and says she is unable to move it. Patient said she fell in December after trying to help her friend from falling, which resulted in a L Hip fracture. She said she had surgery during that time and had to repeat the surgery afterwards. Patient currently denies numbness, tingling, sob, chest pain, chills, fevers, nausea, vomiting. 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 1 applic TP DAILY 05/16/18 [Santyl] Digoxin [Lanoxin -] 0.125 mg PO DAILY 05/16/18 Dorzolamide/Timolol/Pf 1 each OP DAILY 05/16/18 [Dorzolamide-Timolol 2%-0.5%] Heparin - 5,000 unit SQ BID 05/16/18 Latanoprostene Bunod [Vyzulta] 5 ml OP HS 05/16/18 Metoprolol Succinate 50 mg PO DAILY 05/16/18 Mupirocin Ointment [Bactroban 1 applic TP TID 05/16/18 Ointment (For Decolonization) -] Simvastatin 40 mg PO DAILY 05/16/18 Tramadol HCl 50 mg PO DAILY 05/16/18 metroNIDAZOLE 1% CREAM [Metrocream 1 applic TP DAILY 05/16/18 1% Cream -] REVIEW OF SYSTEMS CONSTITUTIONAL: Absent: fever, chills, diaphoresis, generalized weakness, malaise, loss of appetite, weight change HEENT: Absent: rhinorrhea, nasal congestion, throat pain, throat swelling, difficulty swallowing, mouth swelling, ear pain, eye pain, visual changes CARDIOVASCULAR: Absent: chest pain, syncope, palpitations, irregular heart rate, lightheadedness , peripheral edema RESPIRATORY: Absent: cough, shortness of breath, dyspnea with exertion, orthopnea, wheezing, stridor, hemoptysis GASTROINTESTINAL: Absent: abdominal pain, abdominal distension, nausea, vomiting, diarrhea, constipation, melena, hematochezia GENITOURINARY: Absent: dysuria, frequency, urgency, hesitancy, hematuria, flank pain, genital pain MUSCULOSKELETAL: Absent: myalgia, arthralgia, joint swelling, back pain, neck pain SKIN: Absent: rash, itching, pallor HEMATOLOGIC/IMMUNOLOGIC: Absent: easy bleeding, easy bruising, lymphadenopathy, frequent infections ENDOCRINE: Absent: unexplained weight gain, unexplained weight loss, heat intolerance, cold intolerance NEUROLOGIC: Absent: headache, focal weakness or paresthesias, dizziness, unsteady gait, seizure, mental status changes, bladder or bowel incontinence PSYCHIATRIC: Absent: anxiety, depression, suicidal or homicidal ideation, hallucinations. PHYSICAL EXAMINATION Vital Signs - 24 hr 05/16/18 12:33 Temperature 97.8 F Pulse Rate 90 Respiratory 16 Rate Blood Pressure 147/75 O2 Sat by Pulse 93 L Oximetry (%) GENERAL: A/o x 3, in NAD HEAD: Normal with no signs of trauma. EYES: Pupils equal, round and reactive to light, sclera anicteric, conjunctiva clear. EARS, NOSE, THROAT: oropharynx clear without exudates. Moist mucous membranes. NECK: supple without lymphadenopathy, JVD, or masses. LUNGS: Breath sounds equal, clear to auscultation bilaterally. HEART: irregular rhythm ABDOMEN: Soft, nontender, not distended, normoactive bowel sounds MUSCULOSKELETAL: restricted ROM in RLE. patient says she is unable to move it from pain. LOWER EXTREMITIES: 2+ pulses, warm, No peripheral edema. NEUROLOGICAL: Cranial nerves II-XII intact. Laboratory Results - last 24 hr 05/16/18 05/16/18 05/16/18 13:15 13:15 13:15 WBC 14.6 H RBC 4.08 Hgb 12.4 Hct 35.3 MCV 86.5 MCH 30.3 MCHC 35.1 RDW 15.2 Plt Count 284 MPV 7.6 D Absolute Neuts (auto) 12.6 H Neutrophils % 86.1 H Lymphocytes % 6.3 L D Monocytes % 7.4 Eosinophils % 0.0 D Basophils % 0.2 Nucleated RBC % 0 PT with INR INR Sodium 130 L Potassium 4.6 Chloride 95 L Carbon Dioxide 27 Anion Gap 9 BUN 12 Creatinine 0.7 Creat Clearance w eGFR > 60 Random Glucose 119 H Calcium 9.0 Total Bilirubin 0.8 AST 23 ALT 24 Alkaline Phosphatase 83 Creatine Kinase Troponin I Total Protein 6.4 Albumin 3.3 L Urine Color Urine Appearance Urine pH Ur Specific [place] Urine Protein Urine Glucose (UA) Urine Ketones Urine Blood Urine Nitrite Urine Bilirubin Urine Urobilinogen Ur Leukocyte Esterase Blood Type O POSITIVE Antibody Screen Negative 05/16/18 05/16/18 05/16/18 13:15 15:46 17:40 WBC RBC Hgb Hct MCV MCH MCHC RDW Plt Count MPV Absolute Neuts (auto) Neutrophils % Lymphocytes % Monocytes % Eosinophils % Basophils % Nucleated RBC % PT with INR 12.00 INR 1.02 Sodium Potassium Chloride Carbon Dioxide Anion Gap BUN Creatinine Creat Clearance w eGFR Random Glucose Calcium Total Bilirubin AST ALT Alkaline Phosphatase Creatine Kinase 91 Troponin I < 0.02 Total Protein Albumin Urine Color Yellow Urine Appearance Clear Urine pH 6.0 Ur Specific [place] 1.013 Urine Protein Negative Urine Glucose (UA) Negative Urine Ketones Negative Urine Blood Negative Urine Nitrite Negative Urine Bilirubin Negative Urine Urobilinogen Negative Ur Leukocyte Esterase Negative Blood Type Antibody Screen ASSESSMENT/PLAN: 7 yof with PMhx of HTN, HLD, Afib, Left hip fx surgery x 2 since november, s/p LLE DVT while on xarelto at [place], transitioned to Lovenox/coumadin in 01/2018, currently off full dose AC (?etiology) on heparin subq BID admitted with fall and Right intertrochanteric hip fracture #Right intertrochanteric hip fracture -s/p mechanical fall -ortho consulted -Plan for surgery on Friday -Tylenol PRN for pain #Hx of LLE DVT -provoked after L hip surgery -1x Lovenox 45mg, given high risk for DVT, and immobilization. -Follow up duplex results 05/13 #A-fib -rate control with metoprolol -cont. digoxin -dig level in am -not on AC -was on xarelto. unknown why it was stopped. I called senior care and they did not know. #HLD -atorvastatin 20mg #EKG changes -nonspecific. -low suspicion -repeat trop. 1st set negative #DVT -1x Lovenox 45mg -SCDs Dispo pending operative intervention and clinical course. Code status:DNR/DNI (per [facility] records), confirmed with patient Visit type - Emergency Visit Emergency Visit: Yes ED Registration Date: 05/16/18 Care time: The patient presented to the Emergency Department on the above date and was hospitalized for further evaluation of their emergent condition. - New Patient This patient is new to me today: Yes Date on this admission: 05/17/18 - Critical Care Critical Care patient: No
--- NOTE | 2018-05-16 18:09 | CONSULT ---
Consult - text type - Consultation Consultation Note: FULL CONSULT DICTATED IMP: RIGHT IT HIP FX PLAN: --> OR ON FRIDAY FOR GAMMA NAILING
[2018-05-16] MEDS ORDERED: ENOXAPARIN NA (PORCINE) 40 MG/0.4 ML DISP.SYRIN SQ ONE (19:11)
--- NOTE | 2018-05-16 19:17 | PN ---
Teaching Attending Note Name of Resident: Theresa Jean ATTENDING PHYSICIAN STATEMENT I saw and evaluated the patient. I reviewed the resident's note and discussed the case with the resident. I agree with the resident's findings and plan as documented with exceptions below. SUBJECTIVE: 87 yof with PMhx of HTN, HLD, Afib, Left hip fx surgery x 2 since november, s/p LLE DVT while on xarelto at [place], transitioned to Lovenox/coumadin in 01/2018, currently off full dose AC (?etiology) on heparin subq BID, comes with mechanical fall yesterday, with Right hip pain and inabilty to bear weight and ambulate. patient reports mechanical fall, denies any chest pain, palpitations, dyspnea, dizziness, abdominal or urinary symptoms. Denies any head trauma or LOC. patient ambulates with walker, limited ADLs, but denies prior DE, exertional chest pain, dyspnea, orthopnea/PND, leg swelling or new concerns. 12 point ROS done, neg except above. OBJECTIVE: Vital Signs Period Temp Pulse Resp BP Sys/Pabon Pulse Ox Last 24 Hr 97.8 F 90 16 147/75 93 Intake & Output 05/13/18 05/14/18 05/15/18 05/16/18 23:59 23:59 23:59 23:59 Weight 103 lb GENERAL: Awake, alert, and fully oriented, in no acute distress. HEAD: Normal with no signs of trauma. EYES: Pupils equal, round and reactive to light, extraocular movements intact, sclera anicteric, conjunctiva clear. No lid lag. EARS, NOSE, THROAT: Ears normal, nares patent, oropharynx clear without exudates. Moist mucous membranes. NECK: Normal range of motion, supple no JVD LUNGS: Breath sounds equal, clear to auscultation bilaterally. No wheezes, and no crackles. No accessory muscle use. HEART: Regular rate and rhythm, normal S1 and S2 ABDOMEN: Soft, nontender, not distended, normoactive bowel sounds, no guarding, no rebound, no masses. No hepatomegaly or splenomegaly. UPPER EXTREMITIES: 2+ pulses, warm, well-perfused. No cyanosis. No clubbing. No peripheral edema. LOWER EXTREMITIES: 2+ pulses, warm, well-perfused. RLE shortened and externally rotated NEUROLOGICAL: AAOX3, facial symmetry, UE power 5/5, LE RLE limited by pain, grossly non focal PSYCHIATRIC: Cooperative. Good eye contact. Appropriate mood and affect. SKIN: Warm, dry, normal turgor, no rashes or lesions noted, normal capillary refill. Home Medications Medication Instructions Recorded Acetaminophen [Tylenol] 650 mg PO ASDIR 05/16/18 Aspirin [Aspirin EC] 325 mg PO DAILY 05/16/18 Brimonidine Tartrate [Alphagan P 1 drop TID 05/16/18 0.1% -] Collagenase Clostridium Hist. 1 applic TP DAILY 05/16/18 [Santyl] Digoxin [Lanoxin -] 0.125 mg PO DAILY 05/16/18 Dorzolamide/Timolol/Pf 1 each OP DAILY 05/16/18 [Dorzolamide-Timolol 2%-0.5%] Heparin - 5,000 unit SQ BID 05/16/18 Latanoprostene Bunod [Vyzulta] 5 ml OP HS 05/16/18 Metoprolol Succinate 50 mg PO DAILY 05/16/18 Mupirocin Ointment [Bactroban 1 applic TP TID 05/16/18 Ointment (For Decolonization) -] Simvastatin 40 mg PO DAILY 05/16/18 Tramadol HCl 50 mg PO DAILY 05/16/18 metroNIDAZOLE 1% CREAM [Metrocream 1 applic TP DAILY 05/16/18 1% Cream -] Active Medications Atorvastatin Calcium (Lipitor -) 20 mg PO HS [place] Digoxin (Lanoxin -) 0.125 mg PO DAILY [place] Dorzolamide HCl (Trusopt 2%) 1 drop OU BID [place] Enoxaparin Sodium (Lovenox -) 45 mg SQ ONCE ONE Stop: 05/16/18 19:16 Latanoprost (Xalatan 0.005% Eye Drops -) 1 drop OU HS [place] Metoprolol Succinate (Toprol Xl -) 50 mg PO DAILY [place] Timolol Maleate (Timoptic 0.5%) 1 drop OU BID [facility] Laboratory Results - last 24 hr 05/16/18 05/16/18 05/16/18 13:15 13:15 13:15 WBC 14.6 H RBC 4.08 Hgb 12.4 Hct 35.3 MCV 86.5 MCH 30.3 MCHC 35.1 RDW 15.2 Plt Count 284 MPV 7.6 D Absolute Neuts (auto) 12.6 H Neutrophils % 86.1 H Lymphocytes % 6.3 L D Monocytes % 7.4 Eosinophils % 0.0 D Basophils % 0.2 Nucleated RBC % 0 PT with INR INR Sodium 130 L Potassium 4.6 Chloride 95 L Carbon Dioxide 27 Anion Gap 9 BUN 12 Creatinine 0.7 Creat Clearance w eGFR > 60 Random Glucose 119 H Calcium 9.0 Total Bilirubin 0.8 AST 23 ALT 24 Alkaline Phosphatase 83 Creatine Kinase Troponin I Total Protein 6.4 Albumin 3.3 L Urine Color Urine Appearance Urine pH Ur Specific [place] Urine Protein Urine Glucose (UA) Urine Ketones Urine Blood Urine Nitrite Urine Bilirubin Urine Urobilinogen Ur Leukocyte Esterase Blood Type O POSITIVE Antibody Screen Negative 05/16/18 05/16/18 05/16/18 13:15 15:46 17:40 WBC RBC Hgb Hct MCV MCH MCHC RDW Plt Count MPV Absolute Neuts (auto) Neutrophils % Lymphocytes % Monocytes % Eosinophils % Basophils % Nucleated RBC % PT with INR 12.00 INR 1.02 Sodium Potassium Chloride Carbon Dioxide Anion Gap BUN Creatinine Creat Clearance w eGFR Random Glucose Calcium Total Bilirubin AST ALT Alkaline Phosphatase Creatine Kinase 91 Troponin I < 0.02 Total Protein Albumin Urine Color Yellow Urine Appearance Clear Urine pH 6.0 Ur Specific [place] 1.013 Urine Protein Negative Urine Glucose (UA) Negative Urine Ketones Negative Urine Blood Negative Urine Nitrite Negative Urine Bilirubin Negative Urine Urobilinogen Negative Ur Leukocyte Esterase Negative Blood Type Antibody Screen EKG NSR Mild ST depressions and T inversions in V4-V6 (deeper than EKG in 01/2018 ) ASSESSMENT AND PLAN: 87 yof with PMhx of HTN, HLD, Afib, Left hip fx surgery x 2 since november, s/p LLE DVT while on xarelto at [place], transitioned to Lovenox/coumadin in 01/2018, currently off full dose AC (?etiology) on heparin subq BID admitted with fall and Right intertrochanteric hip fracture -Mechanical fall -Right intertrochanteric hip fracture -H/o LLE DVT in the setting of left hip surgery, concerns for xarelto failure -Afib -HTN -HLD Plan: Orthopedic input noted. plan for operative intervention Friday. Pain control with tylenol prn. Lovenox 45 mg subq x 1 given high risk for DVT now with recurrent fracture and immobilization. Patient with recent Duplex 05/13, follow up results. Continue metoprolol/Digoxin. Repeat Trop. Non specific EKG changes, Repeat trop and monitor but low suspicion. Bowel regimen DVTPPX as above Dispo pending operative intervention and clinical course. Code status:DNR/DNI (per [place] records), confirmed with patient Plan discussed with patient in detail, all questions answered. Total admit time 65 min.
[2018-05-16] MEDS ORDERED: SENNOSIDES 8.6MG TABLET (FP) PO PRN (19:26)
[2018-05-16] MEDS ORDERED: ACETAMINOPHEN 325 MG TABLET (FP) PO PRN (19:27)
[2018-05-16] MEDS ORDERED: ENOXAPARIN NA (PORCINE) 60 MG/0.6 ML DISP.SYRIN SQ ONE (19:30)
[2018-05-16] MEDS ORDERED: LATANOPROSTENE BUNOD OP SCH (22:00)
[2018-05-16] MEDS: DOCUSATE SODIUM 100 MG CAPSULE (FP) PO SCH (22:28)
[2018-05-16] MEDS: LATANOPROST 0.005% OPHTH SOLN 2.5ML BOTTLE OU SCH (22:44)
[2018-05-17] MEDS: traMADol HCL 50 MG TABLET PO SCH ×2 (03:13→10:02)
[2018-05-17] MEDS: DOCUSATE SODIUM 100 MG CAPSULE (FP) PO SCH ×3 (05:55→21:18)
[2018-05-17 08:30] LABS: BASO % 0.4 % (0-2.0); HEMATOCRIT 34.7 % (32.4-45.2); HEMOGLOBIN 11.5 GM/dL (10.7-15.3); LYMPH % 11.2 % (8-40); MCHC 33.2 g/dl (32.0-36.0); MEAN CELL VOLUME 87.6 fl (80-96); MEAN PLT VOLUME 7.4 fl (7.5-11.1); MONO % 9.5 % (3.8-10.2); NEUT % 78.9 % (42.8-82.8); PLATELET COUNT 259 K/MM3 (134-434); RBC 3.97 M/mm3 (3.60-5.2); RDW 15.3 % (11.6-15.6); WHITE BLOOD COUNT 11.3 K/mm3 (4.0-10.0)
[2018-05-17 08:39] LABS: INR 1.13 (0.83-1.09); PROTHROMBIN TIME (PATIENT) 13.3 SEC (9.7-13.0)
[2018-05-17 09:41] LABS: ALK PHOS 78 U/L (45-117); ANION GAP 8 MMOL/L (8-16); BILIRUBIN,TOTAL 0.8 mg/dL (0.2-1); BLOOD UREA NITROGEN 14 mg/dL (7-18); CALCIUM 8.8 mg/dL (8.5-10.1); CHLORIDE 96 mmol/L (98-107); CO2 27 mmol/L (21-32); CREATININE 0.7 mg/dL (0.55-1.3); GLUCOSE,RANDOM 107 mg/dL (74-106); PHOSPHOROUS 3.8 mg/dL (2.5-4.9); POTASSIUM 4.1 mmol/L (3.5-5.1); SGOT/AST 21 U/L (15-37); SGPT/ALT 20 U/L (13-61); SODIUM 131 mmol/L (136-145); TOT PROT 5.9 g/dl (6.4-8.2)
--- NOTE | 2018-05-17 09:45 | CONS ---
ORTHOPEDIC CONSULTATION DATE OF CONSULTATION: 05/16/2018 HISTORY OF PRESENT ILLNESS: The patient is an 87-year-old female, status post fall injuring her right hip. Patient is complaining of inability to ambulate with a great deal of pain in her right hip. Patient is status post left hip hemiarthroplasty in another institution by another surgeon. On physical exam, she has a right lower extremity showing externally rotated, marked increased pain with any range of motion of her hip, good motion of knee, ankle, and toes, otherwise neurovascularly intact. X-ray does show a right basicervical/intertrochanteric hip fracture. IMPRESSION: Fracture as described. PLAN: Medical optimization. Patient will be booked for operative intervention/right gamma nail on May 18, 2018. SHEILA MUELLER M.D. [place]/[id number]
[2018-05-17] MEDS ORDERED: PT OWN MED DRAWER 7, Y5N ONE (09:56)
[2018-05-17] MEDS: DIGOXIN 0.125 MG TABLET (FP) PO SCH (10:00)
[2018-05-17] MEDS ORDERED: PATIENT'S OWN MEDICATION (NON-FORMULARY) (Dorzolamide/Timolol/Pf [Dorzolamide-Timolol 2%-0 OP SCH (10:00)
[2018-05-17] MEDS: TIMOLOL 0.5% OPHTHALMIC SOL 5 ML BOTTLE OU SCH ×2 (10:05→21:21)
[2018-05-17] MEDS: DORZOLAMIDE 2% HCL OPHTHALMIC SOLUTION 10 ML BOTTLE OU SCH ×2 (10:06→21:21)
[2018-05-17] MEDS ORDERED: ENOXAPARIN NA (PORCINE) 40 MG/0.4 ML DISP.SYRIN SQ ONE (11:15)
[2018-05-17] MEDS ORDERED: traMADol HCL 50 MG TABLET PO PRN (13:53)
--- NOTE | 2018-05-17 15:40 | PN ---
Physical Exam: SUBJECTIVE: Patient seen and examined, right hip pain when moves, otherwise no complaints. OBJECTIVE: Vital Signs Period Temp Pulse Resp BP Sys/Pabon Pulse Ox Last 24 Hr 97.4 F-98.5 F 70-93 18-20 123-161/64-78 96-99 GENERAL: The patient is awake, alert, and fully oriented, in no acute distress. HEAD: Normal with no signs of trauma. EYES: PERRL, extraocular movements intact, sclera anicteric, conjunctiva clear. No ptosis. ENT: Ears normal, nares patent, oropharynx clear without exudates, moist mucous membranes. NECK: Trachea midline, full range of motion, supple. LUNGS: decreased effort, no rales or wheezing HEART: Regular rate and rhythm, S1, S2 ABDOMEN: Soft, nontender, nondistended, normoactive bowel sounds, no guarding, no rebound EXTREMITIES: RLE shortened and externally rotated, well perfuse, positive DP pulses PSYCH: Normal mood, normal affect. SKIN: Warm, dry, normal turgor, no rashes or lesions noted Laboratory Results - last 24 hr 05/16/18 05/16/18 05/17/18 15:46 17:40 00:01 WBC RBC Hgb Hct MCV MCH MCHC RDW Plt Count MPV Absolute Neuts (auto) Neutrophils % Lymphocytes % Monocytes % Eosinophils % Basophils % Nucleated RBC % PT with INR INR Sodium Potassium Chloride Carbon Dioxide Anion Gap BUN Creatinine Creat Clearance w eGFR Random Glucose Calcium Phosphorus Magnesium Total Bilirubin AST ALT Alkaline Phosphatase Creatine Kinase 91 Troponin I < 0.02 < 0.02 Total Protein Albumin Urine Color Yellow Urine Appearance Clear Urine pH 6.0 Ur Specific Eldridge 1.013 Urine Protein Negative Urine Glucose (UA) Negative Urine Ketones Negative Urine Blood Negative Urine Nitrite Negative Urine Bilirubin Negative Urine Urobilinogen Negative Ur Leukocyte Esterase Negative Digoxin 05/17/18 05/17/18 05/17/18 07:30 07:45 07:45 WBC 11.3 H RBC 3.97 Hgb 11.5 Hct 34.7 MCV 87.6 MCH 29.0 MCHC 33.2 RDW 15.3 Plt Count 259 MPV 7.4 L Absolute Neuts (auto) 8.9 H Neutrophils % 78.9 Lymphocytes % 11.2 D Monocytes % 9.5 Eosinophils % 0.0 Basophils % 0.4 Nucleated RBC % 0 PT with INR 13.30 H INR 1.13 H Sodium 131 L Potassium 4.1 Chloride 96 L Carbon Dioxide 27 Anion Gap 8 BUN 14 Creatinine 0.7 Creat Clearance w eGFR > 60 Random Glucose 107 H Calcium 8.8 Phosphorus 3.8 Magnesium 2.0 Total Bilirubin 0.8 AST 21 ALT 20 Alkaline Phosphatase 78 Creatine Kinase Troponin I Total Protein 5.9 L Albumin 3.0 L Urine Color Urine Appearance Urine pH Ur Specific Eldridge Urine Protein Urine Glucose (UA) Urine Ketones Urine Blood Urine Nitrite Urine Bilirubin Urine Urobilinogen Ur Leukocyte Esterase Digoxin 0.84 Active Medications Generic Name Dose Route Start Last Admin Trade Name Freq PRN Reason Stop Dose Admin Acetaminophen 650 mg 05/16/18 19:27 05/16/18 22:46 Tylenol - PO 650 mg Q6H PRN Administration PAIN LEVEL 1-5 Atorvastatin Calcium 20 mg 05/17/18 22:00 Lipitor - PO HS [facility] Digoxin 0.125 mg 05/17/18 10:00 05/17/18 10:00 Lanoxin - PO 0.125 mg DAILY [facility] Administration Docusate Sodium 100 mg 05/16/18 22:00 05/17/18 14:28 Colace - PO 100 mg TID [facility] Administration Dorzolamide HCl 1 drop 05/17/18 10:00 05/17/18 10:06 Trusopt 2% OU 1 drop BID [facility] Administration Latanoprost 1 drop 05/16/18 22:00 05/16/18 22:44 Xalatan 0.005% Eye Drops - OU 1 drop HS [facility] Administration Metoprolol Succinate 50 mg 05/17/18 10:00 05/17/18 10:00 Toprol Xl - PO 50 mg DAILY [facility] Administration Senna 2 tab 05/16/18 19:26 Senna - PO HS PRN CONSTIPATION Timolol Maleate 1 drop 05/17/18 10:00 05/17/18 10:05 Timoptic 0.5% OU 1 drop BID [facility] Administration Tramadol HCl 50 mg 05/17/18 13:53 Ultram - PO Q6H PRN PAIN LEVEL 6-10 ASSESSMENT/PLAN: 87 yof with PMhx of HTN, HLD, Afib, Left hip fx surgery x 2 since november, s/p LLE DVT while on xarelto at [place], transitioned to Lovenox/coumadin in 01/2018, currently off full dose AC (?etiology) on heparin subq BID admitted with fall and Right intertrochanteric hip fracture -Mechanical fall -Right intertrochanteric hip fracture -H/o LLE DVT in the setting of left hip surgery, while on xarelto (for DVTPPX post op) -Afib -HTN -HLD Plan: Orthopedic input noted. S/p lovenox 45 mg this AM. Discussed with , hold further doses of lovenox. Plan for Operative intervention tomorrow. Pain control with tylenol prn. Increase tramadol to 50 mg q6h prn. Continue metoprolol/Digoxin. Trop neg x 2. Bowel regimen DVTPPX as above Dispo pending operative intervention and clinical course. Code status:DNR/DNI (per [facility] records), confirmed with patient Plan discussed with patient , nursing and Dr. Mesa in detail, all questions answered. Visit type - Emergency Visit Emergency Visit: Yes ED Registration Date: 05/16/18 Care time: The patient presented to the Emergency Department on the above date and was hospitalized for further evaluation of their emergent condition. - New Patient This patient is new to me today: No - Critical Care Critical Care patient: No - Discharge Referral Referred to [facility] No
[2018-05-17] MEDS: LATANOPROST 0.005% OPHTH SOLN 2.5ML BOTTLE OU SCH (21:21)
[2018-05-17] MEDS ORDERED: ATORVASTATIN CA 20 MG TABLET (FP) PO SCH (22:00)
[2018-05-18] MEDS: DOCUSATE SODIUM 100 MG CAPSULE (FP) PO SCH ×3 (05:38→21:06)
--- NOTE | 2018-05-18 07:15 | EKG ---
Test Reason : Blood Pressure : / mmHG Vent. Rate : 095 BPM Atrial Rate : 086 BPM P-R Int : 000 ms QRS Dur : 086 ms QT Int : 320 ms P-R-T Axes : 000 -42 174 degrees QTc Int : 402 ms ATRIAL FIBRILLATION LEFT AXIS DEVIATION ABNORMAL ECG WHEN COMPARED WITH ECG OF 16-MAY-2018 12:52, NO SIGNIFICANT CHANGE WAS FOUND Confirmed by STEPHANIE MORAN MD ([id number]) on 05/18/2018 7:14:50 AM Referred By: Calin DOSHI Confirmed By:STEPHANIE MORAN MD
--- NOTE | 2018-05-18 08:27 | PN ---
Teaching Attending Note Name of Resident: Chava Santos ATTENDING PHYSICIAN STATEMENT I saw and evaluated the patient. I reviewed the resident's note and discussed the case with the resident. I agree with the resident's findings and plan as documented with exceptions below. SUBJECTIVE: Patient seen and examined. currently denies right hip pain, awaiting surgery, no new complaints. OBJECTIVE: Vital Signs Period Temp Pulse Resp BP Sys/Pabon Pulse Ox Last 24 Hr 97.4 F-99.1 F 70-97 20 134-152/67-73 96 Intake & Output 05/15/18 05/16/18 05/17/18 05/18/18 23:59 23:59 23:59 23:59 Intake Total 1400 0 Output Total 1100 100 Balance 300 -100 Weight 95 lb 9.6 oz General: sitting in bed in no acute distress Abdomen: soft, NT, ND, positive bowel sounds Extremities: RLE shortened and externally rotated, positive pulses Active Medications Acetaminophen (Tylenol -) 650 mg PO Q6H PRN PRN Reason: PAIN LEVEL 1-5 Last Admin: 05/16/18 22:46 Dose: 650 mg Atorvastatin Calcium (Lipitor -) 20 mg PO HS [facility] Last Admin: 05/17/18 21:18 Dose: 20 mg Digoxin (Lanoxin -) 0.125 mg PO DAILY [facility] Last Admin: 05/17/18 10:00 Dose: 0.125 mg Docusate Sodium (Colace -) 100 mg PO TID [facility] Last Admin: 05/18/18 05:38 Dose: Not Given Dorzolamide HCl (Trusopt 2%) 1 drop OU BID [facility] Last Admin: 05/17/18 21:21 Dose: 1 drop Lactated Ringer's (Lactated Ringers Solution) 1,000 ml in 1,000 mls @ 100 mls/ hr IV ASDIR [facility]PER Latanoprost (Xalatan 0.005% Eye Drops -) 1 drop OU HS [facility] Last Admin: 05/17/18 21:21 Dose: 1 drop Metoprolol Succinate (Toprol Xl -) 50 mg PO DAILY [facility] Last Admin: 05/17/18 10:00 Dose: 50 mg Senna (Senna -) 2 tab PO HS PRN PRN Reason: CONSTIPATION Timolol Maleate (Timoptic 0.5%) 1 drop OU BID [facility] Last Admin: 05/17/18 21:21 Dose: 1 drop Tramadol HCl (Ultram -) 50 mg PO Q6H PRN PRN Reason: PAIN LEVEL 6-10 Last Admin: 05/18/18 07:35 Dose: 50 mg EKG unchanged anterolateral changes Tn neg x 2 ASSESSMENT AND PLAN: SSESSMENT/PLAN: 87 yof with PMhx of HTN, HLD, Afib, Left hip fx surgery x 2 since november, s/p LLE DVT while on [place], transitioned to Lovenox/coumadin in 01/2018, currently off full dose AC (?etiology) on heparin subq BID admitted with fall and Right intertrochanteric hip fracture -Mechanical fall -Right intertrochanteric hip fracture -H/o LLE DVT in the setting of left hip surgery , while on xarelto (for DVTPPX post op) -Suspected xarelto failure -Afib -HTN -HLD Plan: Orthopedic input noted. Lovenox 45 mg BID, on hold for 24 hours per discussion with Dr. Mesa. For OR today, will follow up. Pain control with tylenol/tramadol. H/o DVT while on xarelto. Will need lovenox/coumadin post op. Recently taken off AC, on hep sq BID at [place]. retrieve more information from [place]. EKG noted, Continue metoprolol/Digoxin. Trop neg x 2. No concerns for ACS/CHF currently Risks of withholding urgent surgery higher. 2D echo. Bowel regimen DVTPPX as above Dispo pending operative intervention and clinical course. Code status:DNR/DNI (per [place] records), confirmed with patient Plan discussed with patient , nursing in detail, all questions answered.
[2018-05-18] MEDS ORDERED: LACTATED RINGERS SOLUTION 1,000 ML/1,000 ML INFUS.BAG IV SCH (08:30)
[2018-05-18] MEDS: DIGOXIN 0.125 MG TABLET (FP) PO SCH (09:36)
[2018-05-18] MEDS: TIMOLOL 0.5% OPHTHALMIC SOL 5 ML BOTTLE OU SCH ×2 (09:43→21:05)
[2018-05-18] MEDS: DORZOLAMIDE 2% HCL OPHTHALMIC SOLUTION 10 ML BOTTLE OU SCH ×2 (09:44→21:05)
[2018-05-18] MEDS ORDERED: PROMETHAZINE HCL 25 MG/1 ML VIAL IVPUSH PRN ×2 (11:20→13:45)
[2018-05-18] MEDS ORDERED: ONDANSETRON 4 MG/2 ML VIAL IVPUSH PRN ×2 (11:20→13:45)
[2018-05-18] MEDS ORDERED: LACTATED RINGERS SOLUTION 1,000 ML IV SCH ×2 (11:30→13:00)
[2018-05-18] MEDS ORDERED: BUPIVACAINE HCL/PF 0.5% (5MG/ML) 10 ML VIAL ONE (11:36)
[2018-05-18] MEDS ORDERED: MIDAZOLAM HCL 2 MG/2 ML SINGLE DOSE VIAL ONE (11:38)
[2018-05-18] MEDS ORDERED: SODIUM CHLORIDE 0.9% P/F 10 ML VIAL IJ ONE (12:07)
[2018-05-18] MEDS ORDERED: ceFAZolin SODIUM 1 GM VIAL ONE (12:07)
[2018-05-18] MEDS ORDERED: ceFAZolin SODIUM 1 GM VIAL IVPB ONE (12:08)
--- NOTE | 2018-05-18 12:59 | OP ---
Operative Note - Note: Operative Date: 05/18/18 Pre-Operative Diagnosis: RIGHT IT HIP FX Operation: R GAMMA NAIL Post-Operative Diagnosis: Same as Pre-op Surgeon: Ricardo Mesa Anesthesia: Spinal Estimated Blood Loss (mls): 50 Operative Report Dictated: Yes
--- NOTE | 2018-05-18 13:33 | PN ---
Physical Exam: SUBJECTIVE: Patient seen and examined this AM prior to surgery. States she was having pain earlier but is feeling much better now. OBJECTIVE: Vital Signs Period Temp Pulse Resp BP Sys/Pabon Pulse Ox Last 24 Hr 95.5 F-99.1 F 86-101 16-20 85-152/50-82 97-98 GENERAL: A&O, no acute distress, very thin HEAD: Normocephalic, atraumatic. EYES: PERRL, no scleral icterus EARS, NOSE, THROAT: oropharynx clear without exudates. Moist mucous membranes. NECK: supple without lymphadenopathy LUNGS: CTA b/l, no crackles or wheezes HEART: Regular rate and rhythm, normal S1 and S2 without murmur ABDOMEN: Soft, nontender to palpation, normoactive bowel sounds MUSCULOSKELETAL: Pain with movement of right hip EXTREMITIES: 2+ pulses, warm, well-perfused. No peripheral edema. NEUROLOGICAL: Cranial nerves II-XII grossly intact. Normal speech. Active Medications Generic Name Dose Route Start Last Admin Trade Name Freq PRN Reason Stop Dose Admin Acetaminophen 650 mg 05/16/18 19:27 05/16/18 22:46 Tylenol - PO 650 mg Q6H PRN Administration PAIN LEVEL 1-5 Atorvastatin Calcium 20 mg 05/17/18 22:00 05/17/18 21:18 Lipitor - PO 20 mg HS [facility] Administration Bacitracin 1 applic 05/19/18 10:00 Bacitracin - TP DAILY [facility] Collagenase 1 applic 05/19/18 10:00 Santyl - TP DAILY [facility] Protocol Digoxin 0.125 mg 05/17/18 10:00 05/18/18 09:36 Lanoxin - PO 0.125 mg DAILY [facility] Administration Docusate Sodium 100 mg 05/16/18 22:00 05/18/18 05:38 Colace - PO Not Given TID [facility] Dorzolamide HCl 1 drop 05/17/18 10:00 05/18/18 09:44 Trusopt 2% OU 1 drop BID [facility] Administration Fentanyl 50 mcg 05/18/18 11:20 Sublimaze Injection - IVPUSH [id number] PRN PAIN-PACU ORDER X 4 DOSES ONLY Cefazolin Sodium 1 gm in 50 mls @ 100 mls/hr 05/18/18 18:00 Ancef 1 Gm Premixed Ivpb - IVPB 12/25/18 02:29 Q8H-IV [facility] Lactated Ringer's 1,000 mls @ 75 mls/hr 05/18/18 13:00 Lactated Ringers Solution IV ASDIR CASPER Latanoprost 1 drop 05/16/18 22:00 05/17/18 21:21 Xalatan 0.005% Eye Drops - OU 1 drop HS [facility] Administration Metoprolol Succinate 50 mg 05/17/18 10:00 05/18/18 09:36 Toprol Xl - PO 50 mg DAILY [facility] Administration Ondansetron HCl 4 mg 05/18/18 11:20 Zofran Injection IVPUSH Q6H PRN NAUSEA AND/OR VOMITING Promethazine HCl 12.5 mg 05/18/18 11:20 Phenergan Injection - IVPUSH Q6H PRN NAUSEA-FOR RESCUE AFTER 15 MIN Senna 2 tab 05/16/18 19:26 Senna - PO HS PRN CONSTIPATION Timolol Maleate 1 drop 05/17/18 10:00 05/18/18 09:43 Timoptic 0.5% OU 1 drop BID [facility] Administration Tramadol HCl 50 mg 05/17/18 13:53 05/18/18 07:35 Ultram - PO 50 mg Q6H PRN Administration PAIN LEVEL 6-10 ASSESSMENT/PLAN: 7 yof with PMhx of HTN, HLD, Afib, Left hip fx surgery x 2 since november, s/p LLE DVT while on xarelto at [place], transitioned to Lovenox/coumadin in 01/2018, currently off full dose AC on heparin subq BID admitted with fall and Right intertrochanteric hip fracture. POD 0 Right Hip Gamma Nail -[facility] -Uncomplicated OR case, 50 cc estimated blood loss -Pain control as per anesthesia/surgery -Incentive spirometry -PT eval -Dispo return to SNF pending surgical clearance HTN -Toprol XL 50 mg PO Daily -Currently stable HLD -Simvastatin 40 mg PO Daily A-fib -Toprol XL 50 mg PO Daily -Digoxin 0.125 mg PO Daily LLE DVT on AC -Pt discharged recently on AC, however currently admitted only on Heparin SQ BID -Lovenox 45 mg SQ BID DVT Prophylaxis -Lovenox 45 mg SQ BID FEN -Fluids: LR @ 75 cc/hr -Electrolytes: No electrolyte abnormalities, BMP in AM -Nutrition: Na controlled diet Disposition Med/Surg Visit type - Emergency Visit Emergency Visit: Yes ED Registration Date: 05/16/18 Care time: The patient presented to the Emergency Department on the above date and was hospitalized for further evaluation of their emergent condition. - New Patient This patient is new to me today: Yes Date on this admission: 05/18/18 - Critical Care Critical Care patient: No
--- NOTE | 2018-05-18 13:40 | SPEC ---
DATE OF OPERATION: 05/18/2018 PREOPERATIVE DIAGNOSIS: Right intertrochanteric hip fracture. POSTOPERATIVE DIAGNOSIS: Right intertrochanteric hip fracture. PROCEDURE: Right Gamma nailing. SURGICAL ATTENDING: Ricardo Mesa MD WATERPROOFER: KELSEY Patton ANESTHESIA: Spinal. CLOSURE: A short Gamma nail with appropriate interlocks, No. 1 Vicryl fascia, 0 and 2-0 subcutaneous, michael to skin. ESTIMATED BLOOD LOSS: 50 mL. COMPLICATIONS: None. CONDITION: To recovery in stable condition. DESCRIPTION OF THE PROCEDURE: The patient was taken to the operating room on May 18, 2018. IV Kefzol was administered prophylactically prior to the case. Anesthesia was administered by the anesthesiologist. The patient was then fastened to the fracture table with all prominences well padded. Excellent reduction of the fracture was confirmed in AP and lateral plane by use of fluoroscopy. The right hip area was then prepped and draped in the usual sterile fashion by use of a shower curtain. A small 2-cm longitudinal incision over the tip of the greater trochanter was incised, hemostasis achieved using Bovie cautery. Sharp dissection was carried through the fascia. A guidewire was drilled from the tip of the greater trochanter into the intramedullary canal past the fracture. This was directed by fluoroscopy in both the AP and lateral plane. This was overreamed with a proximal reamer. A short Gamma nail was then malleted down into place. Using the outrigger and a small stab incision laterally, a guidewire was drilled from the lateral aspect of the femur, through the summer, through the neck into the femoral head. Proper placement was confirmed in the AP and lateral plane by using the image intensifier. The guidewire was measured for length, reamed with a triple reamer, and then screwed with the appropriate-sized lag screw. With the traction removed, the compression device was used to compress the fracture. A set screw was placed from above in the dynamic fashion. Again using the outrigger and through a small stab incision distally, a distal hole was drilled, depth gauged and screwed with the appropriate length locking screw in the static hole. The outrigger was removed. The x-rays in the AP and lateral plane revealed excellent position of the hardware with excellent reduction of the fracture. All incisions were irrigated out with copious amounts of irrigation. The fascia was closed in 0 Vicryl, 2-0 subcutaneous, and michael to the skin. Sterile pressure dressing was applied, patient awakened from anesthesia and transferred to Recovery in stable condition. No complications. Estimated blood loss negligible. Lucia RSOARIO/[id number]
[2018-05-18] MEDS ORDERED: SENNOSIDES 8.6MG TABLET (FP) PO PRN (13:45)
[2018-05-18] MEDS ORDERED: ACETAMINOPHEN 325 MG TABLET (FP) PO PRN (13:45)
--- NOTE | 2018-05-18 14:06 | CONSULT ---
- Consultation REQUESTING PROVIDER: CONSULT REQUEST: We have been asked to surgically evaluate this patient for wound care. PCP:Yehuda Ham MD HISTORY OF PRESENT ILLNESS: The patient 87 yo female who states that she fell while moving from bed to chair. She has a history of left hip repair in December. She has been followed by Dr. Tam for a left heel ulcer and was last seen 2017. The patient has a h/o Left leg DVT from a previous admission. I spoke with the medical team and she had hip surgeries in November and was on Xarelto-post op. She was transferred to [facility] in early January of 2018 and found to have a below the knee DVT. The patients anticoagulation treatment was changed to lovenox/coumadin at this time. When admitted several days ago, she not longer was on any anticoagulation. She is s/p R Gamma Nail today. PMHx: Left leg DVT PSHx: Left hip surgery Home Medications Medication Instructions Recorded Acetaminophen [Tylenol] 650 mg PO ASDIR 05/16/18 Aspirin [Aspirin EC] 325 mg PO DAILY 05/16/18 Brimonidine Tartrate [Alphagan P 1 drop TID 05/16/18 0.1% -] Collagenase Clostridium Hist. 1 applic TP DAILY 05/16/18 [Santyl] Digoxin [Lanoxin -] 0.125 mg PO DAILY 05/16/18 Dorzolamide/Timolol/Pf 1 each OP DAILY 05/16/18 [Dorzolamide-Timolol 2%-0.5%] Heparin - 5,000 unit SQ BID 05/16/18 Latanoprostene Bunod [Vyzulta] 5 ml OP HS 05/16/18 Metoprolol Succinate 50 mg PO DAILY 05/16/18 Mupirocin Ointment [Bactroban 1 applic TP TID 05/16/18 Ointment (For Decolonization) -] Simvastatin 40 mg PO DAILY 05/16/18 Tramadol HCl 50 mg PO DAILY 05/16/18 metroNIDAZOLE 1% CREAM [Metrocream 1 applic TP DAILY 05/16/18 1% Cream -] Allergies Allergy/AdvReac Type Severity Reaction Status Date / Time No Known Allergies Allergy Verified 05/16/18 12:32 REVIEW OF SYSTEMS: Unable to obtain PHYSICAL EXAM: GENERAL: Awake, alert in no acute distress. ABDOMEN: Soft, nontender, not distended, normoactive bowel sounds, no guarding, no rebound, no masses. No organomegaly. MUSCULOSKELETAL: Right leg turned out. L hip inc c/d/i LOWER EXTREMITIES: 1+ DP pulses, warm, well-perfused. No calf tenderness. No peripheral edema. Left heel with 3x3cm soft eschar, no erythema NEUROLOGICAL: Normal speech, gait not observed. PSYCH: Cooperative. Good eye contact. Appropriate mood and affect. Vital Signs Temperature 95.5 F L 05/18/18 12:57 Pulse Rate 91 H 05/18/18 13:10 Respiratory Rate 16 05/18/18 13:10 Blood Pressure 85/50 L 05/18/18 13:10 O2 Sat by Pulse Oximetry (%) 98 05/18/18 13:10 Lab Results WBC 11.3 K/mm3 (4.0-10.0) H 05/17/18 07:45 RBC 3.97 M/mm3 (3.60-5.2) 05/17/18 07:45 Hgb 11.5 GM/dL (10.7-15.3) 05/17/18 07:45 Hct 34.7 % (32.4-45.2) 05/17/18 07:45 MCV 87.6 fl (80-96) 05/17/18 07:45 MCHC 33.2 g/dl (32.0-36.0) 05/17/18 07:45 RDW 15.3 % (11.6-15.6) 05/17/18 07:45 Plt Count 259 K/MM3 (134-434) 05/17/18 07:45 Sodium 131 mmol/L (136-145) L 05/17/18 07:45 Potassium 4.1 mmol/L (3.5-5.1) 05/17/18 07:45 Chloride 96 mmol/L (98-107) L 05/17/18 07:45 Carbon Dioxide 27 mmol/L (21-32) 05/17/18 07:45 Anion Gap 8 MMOL/L (8-16) 05/17/18 07:45 BUN 14 mg/dL (7-18) 05/17/18 07:45 Creatinine 0.7 mg/dL (0.55-1.3) 05/17/18 07:45 Random Glucose 107 mg/dL (74-106) H 05/17/18 07:45 Calcium 8.8 mg/dL (8.5-10.1) 05/17/18 07:45 Blood Type O POSITIVE 05/16/18 13:15 Antibody Screen Negative 05/16/18 13:15 INR 1.13 (0.83-1.09) H 05/17/18 07:30 01/26/2018: DVT left calf soleal vein 05/16/2018: Right hip fracture Problem List - Problems (1) DVT (deep venous thrombosis) Assessment/Plan: pt with h/o Left below the knee DVT in 01/2018, Spoke with the medical team and recommend repeat LE duplex study. The medical team is resuming a therapeutic lovenox dose. 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 Recommend to mobilize the patient when appropriate and confirmed with the orthopedic team, this wound help to alleviate pressure on the heels/ankles/and decrease the risk of vein clot formation. Navix studies to the LE to evaluate arterial blow flow, completed on 05/13. Spoke with Dr. Tam and will follow and monitor the patient for all these results. Code(s): L89.623 - PRESSURE ULCER OF LEFT HEEL, STAGE 3
[2018-05-18 14:44] VITALS: BMI 16.8
[2018-05-18] MEDS ORDERED: CEFAZOLIN 1 GM/D5W 1 GM/50 ML BAG IVPB SCH (18:00)
[2018-05-18] MEDS: CEFAZOLIN 1 GM/D5W 1 GM/50 ML BAG IVPB SCH (18:53)
[2018-05-18] MEDS: traMADol HCL 50 MG TABLET PO PRN (20:53)
[2018-05-18] MEDS: LATANOPROST 0.005% OPHTH SOLN 2.5ML BOTTLE OU SCH (21:05)
[2018-05-18] MEDS: ATORVASTATIN CA 20 MG TABLET (FP) PO SCH (21:06)
[2018-05-18] MEDS: ENOXAPARIN NA (PORCINE) 60 MG/0.6 ML DISP.SYRIN SQ SCH (21:08)
[2018-05-19] MEDS: CEFAZOLIN 1 GM/D5W 1 GM/50 ML BAG IVPB SCH (02:15)
[2018-05-19] MEDS: traMADol HCL 50 MG TABLET PO PRN ×2 (05:47→14:19)
[2018-05-19] MEDS: DOCUSATE SODIUM 100 MG CAPSULE (FP) PO SCH ×3 (05:47→21:13)
--- NOTE | 2018-05-19 08:49 | PN ---
Progress Note (short form) - Note Progress Note: ANESTHESIOLOGY POST-OP CHECK 87F s/p right hip gamma nail under spinal anesthesia, POD #1. No acute complaints. Denies N/V. Pain 6/10 and tolerable. Vital Signs Temperature 97.6 F 05/19/18 06:00 Pulse Rate 97 H 05/19/18 06:00 Respiratory Rate 18 05/19/18 06:00 Blood Pressure 135/68 05/19/18 06:00 O2 Sat by Pulse Oximetry (%) 97 05/18/18 21:00 Active Medications Acetaminophen (Tylenol -) 650 mg PO Q6H PRN PRN Reason: PAIN LEVEL 1-5 Last Admin: 05/18/18 23:12 Dose: 650 mg Atorvastatin Calcium (Lipitor -) 20 mg PO HS [facility] Last Admin: 05/18/18 21:06 Dose: 20 mg Bacitracin (Bacitracin -) 1 applic TP DAILY [facility] Collagenase (Santyl -) 1 applic TP DAILY [facility]; Protocol Digoxin (Lanoxin -) 0.125 mg PO DAILY [facility] Docusate Sodium (Colace -) 100 mg PO TID [facility] Last Admin: 05/19/18 05:47 Dose: 100 mg Dorzolamide HCl (Trusopt 2%) 1 drop OU BID [facility] Last Admin: 05/18/18 21:05 Dose: 1 drop Enoxaparin Sodium (Lovenox -) 45 mg SQ BID [facility] Last Admin: 05/18/18 21:08 Dose: 45 mg Latanoprost (Xalatan 0.005% Eye Drops -) 1 drop OU HS [facility] Last Admin: 05/18/18 21:05 Dose: 1 drop Metoprolol Succinate (Toprol Xl -) 50 mg PO DAILY [facility] Senna (Senna -) 2 tab PO HS PRN PRN Reason: CONSTIPATION Last Admin: 05/18/18 21:06 Dose: 2 tab Timolol Maleate (Timoptic 0.5%) 1 drop OU BID [facility] Last Admin: 05/18/18 21:05 Dose: 1 drop Tramadol HCl (Ultram -) 50 mg PO Q6H PRN PRN Reason: PAIN LEVEL 6-10 Last Admin: 05/19/18 05:47 Dose: 50 mg Gen: awake, alert, NAD No apparent anesthesia complications. Pain controlled. Continue management as per primary team.
[2018-05-19] MEDS ORDERED: COLLAGENASE CLOSTRIDIUM HIST. 30 GRAMS TUBE TP SCH (10:00)
[2018-05-19] MEDS ORDERED: BACITRACIN 15 GM TUBE TOPICAL OINTMENT TP SCH (10:00)
[2018-05-19] MEDS ORDERED: ENOXAPARIN NA (PORCINE) 40 MG/0.4 ML DISP.SYRIN SQ SCH (10:00)
[2018-05-19] MEDS: DIGOXIN 0.125 MG TABLET (FP) PO SCH (10:05)
[2018-05-19] MEDS: ENOXAPARIN NA (PORCINE) 60 MG/0.6 ML DISP.SYRIN SQ SCH ×2 (10:06→21:14)
[2018-05-19] MEDS: TIMOLOL 0.5% OPHTHALMIC SOL 5 ML BOTTLE OU SCH ×2 (10:09→21:15)
[2018-05-19] MEDS: DORZOLAMIDE 2% HCL OPHTHALMIC SOLUTION 10 ML BOTTLE OU SCH ×2 (10:09→21:15)
[2018-05-19] MEDS: BACITRACIN 15 GM TUBE TOPICAL OINTMENT TP SCH (10:10)
[2018-05-19] MEDS: COLLAGENASE CLOSTRIDIUM HIST. 30 GRAMS TUBE TP SCH (10:10)
--- NOTE | 2018-05-19 13:41 | PN ---
Progress Note, Physician History of Present Illness: 87 yof with PMhx of HTN, HLD, Afib, Left hip fx surgery x 2 since november, s/p LLE DVT while on xarelto at [facility], transitioned to Lovenox/coumadin in 01/2018, currently off full dose AC (?etiology) on heparin subq BID admitted with fall and Right intertrochanteric hip fracture - Current Medication List Current Medications: Active Medications Acetaminophen (Tylenol -) 650 mg PO Q6H PRN PRN Reason: PAIN LEVEL 1-5 Last Admin: 05/18/18 23:12 Dose: 650 mg Atorvastatin Calcium (Lipitor -) 20 mg PO HS [facility] Last Admin: 05/18/18 21:06 Dose: 20 mg Bacitracin (Bacitracin -) 1 applic TP DAILY [facility] Last Admin: 05/19/18 10:10 Dose: 1 applic Collagenase (Santyl -) 1 applic TP DAILY [facility]; Protocol Last Admin: 05/19/18 10:10 Dose: 1 applic Digoxin (Lanoxin -) 0.125 mg PO DAILY [facility] Last Admin: 05/19/18 10:05 Dose: 0.125 mg Docusate Sodium (Colace -) 100 mg PO TID [facility] Last Admin: 05/19/18 05:47 Dose: 100 mg Dorzolamide HCl (Trusopt 2%) 1 drop OU BID [facility] Last Admin: 05/19/18 10:09 Dose: 1 drop Enoxaparin Sodium (Lovenox -) 45 mg SQ BID [facility] Last Admin: 05/19/18 10:06 Dose: 45 mg Latanoprost (Xalatan 0.005% Eye Drops -) 1 drop OU HS [facility] Last Admin: 05/18/18 21:05 Dose: 1 drop Metoprolol Succinate (Toprol Xl -) 50 mg PO DAILY [facility] Last Admin: 05/19/18 10:05 Dose: 50 mg Senna (Senna -) 2 tab PO HS PRN PRN Reason: CONSTIPATION Last Admin: 05/18/18 21:06 Dose: 2 tab Timolol Maleate (Timoptic 0.5%) 1 drop OU BID [facility] Last Admin: 05/19/18 10:09 Dose: 1 drop Tramadol HCl (Ultram -) 50 mg PO Q6H PRN PRN Reason: PAIN LEVEL 6-10 Last Admin: 05/19/18 05:47 Dose: 50 mg - Objective Vital Signs: Vital Signs Temperature 98.4 F 05/19/18 10:00 Pulse Rate 100 H 05/19/18 10:05 Respiratory Rate 18 05/19/18 10:00 Blood Pressure 144/74 05/19/18 10:00 O2 Sat by Pulse Oximetry (%) 97 05/18/18 21:00 Constitutional: Yes: Well Nourished, No Distress, Calm Eyes: Yes: WNL, Conjunctiva Clear, EOM Intact HENT: Yes: WNL, Atraumatic, Normocephalic Neck: Yes: WNL, Supple, Trachea Midline Cardiovascular: Yes: WNL, Regular Rate and Rhythm Respiratory: Yes: WNL, Regular, CTA Bilaterally Gastrointestinal: Yes: WNL, Normal Bowel Sounds, Soft ...Rectal Exam: Yes: Deferred Musculoskeletal: Yes: WNL Extremities: Yes: WNL Integumentary: Yes: WNL Neurological: Yes: WNL Labs: CBC, BMP 05/17/18 07:45 05/17/18 07:45 INR, PTT INR 1.13 (0.83-1.09) H 05/17/18 07:30 Problem List - Problems (1) Intertrochanteric fracture Code(s): S72.143A - DISPLACED INTERTROCHANTERIC FRACTURE OF UNSP FEMUR, INIT Qualifiers: Encounter type: initial encounter Fracture type: closed Fracture alignment: displaced Laterality: right Qualified Code(s): S72.141A - Displaced intertrochanteric fracture of right femur, initial encounter for closed fracture (2) Stage III pressure ulcer of left heel Code(s): L89.623 - PRESSURE ULCER OF LEFT HEEL, STAGE 3 (3) Afib Code(s): I48.91 - UNSPECIFIED ATRIAL FIBRILLATION (4) HTN (hypertension) Code(s): I10 - ESSENTIAL (PRIMARY) HYPERTENSION Assessment/Plan -Mechanical fall -Right intertrochanteric hip fracture -H/o LLE DVT in the setting of left hip surgery , while on xarelto (for DVTPPX post op) -Suspected xarelto failure -Afib - Continue metoprolol/Digoxin - 2D echo. -HTN -HLD Plan: Lovenox 45 mg BID, on hold for 24 hours per discussion with Dr. Mesa. Pain control with tylenol/tramadol. H/o DVT while on xarelto. Will need lovenox/coumadin post op. Dispo pending operative intervention and clinical course. Code status:DNR/DNI (per [facility] records), confirmed with patient Plan discussed with patient , nursing in detail, all questions answered.
[2018-05-19] MEDS: ATORVASTATIN CA 20 MG TABLET (FP) PO SCH (21:13)
[2018-05-19] MEDS: LATANOPROST 0.005% OPHTH SOLN 2.5ML BOTTLE OU SCH (21:15)
[2018-05-20] MEDS: traMADol HCL 50 MG TABLET PO PRN ×3 (00:05→13:20)
[2018-05-20] MEDS: DOCUSATE SODIUM 100 MG CAPSULE (FP) PO SCH ×2 (06:21→13:20)
--- NOTE | 2018-05-20 08:51 | PN ---
Physical Exam: SUBJECTIVE: Patient seen and examined this AM. She states that her pain is well controlled though she does have some pain between administrations. Overall no complaints overnight. OBJECTIVE: Vital Signs Period Temp Pulse Resp BP Sys/Pabon Pulse Ox Last 24 Hr 97.4 F-98.9 F 80-100 18-20 137-157/72-91 96-96 GENERAL: A&O, no acute distress, very thin HEAD: Normocephalic, atraumatic. EYES: PERRL, no scleral icterus EARS, NOSE, THROAT: oropharynx clear without exudates. Moist mucous membranes. NECK: supple without lymphadenopathy LUNGS: CTA b/l, no crackles or wheezes HEART: Regular rate and rhythm, normal S1 and S2 without murmur ABDOMEN: Soft, nontender to palpation, normoactive bowel sounds MUSCULOSKELETAL: Pain with movement of right hip EXTREMITIES:Palpable DP pulses, nonpalpable PTs, warm, well-perfused. No peripheral edema. B/l heel wounds NEUROLOGICAL: Cranial nerves II-XII grossly intact. Normal speech. Active Medications Generic Name Dose Route Start Last Admin Trade Name Freq PRN Reason Stop Dose Admin Acetaminophen 650 mg 05/18/18 13:45 05/18/18 23:12 Tylenol - PO 650 mg Q6H PRN Administration PAIN LEVEL 1-5 Atorvastatin Calcium 20 mg 05/18/18 22:00 05/19/18 21:13 Lipitor - PO 20 mg HS [facility] Administration Bacitracin 1 applic 05/19/18 10:00 05/19/18 10:10 Bacitracin - TP 1 applic DAILY [facility] Administration Collagenase 1 applic 05/19/18 10:00 05/19/18 10:10 Santyl - TP 1 applic DAILY [facility] Administration Protocol Digoxin 0.125 mg 05/19/18 10:00 05/19/18 10:05 Lanoxin - PO 0.125 mg DAILY [facility] Administration Docusate Sodium 100 mg 05/18/18 14:00 05/20/18 06:21 Colace - PO 100 mg TID [facility] Administration Dorzolamide HCl 1 drop 05/18/18 22:00 05/19/18 21:15 Trusopt 2% OU 1 drop BID [facility] Administration Enoxaparin Sodium 45 mg 05/18/18 22:00 05/19/18 21:14 Lovenox - SQ 45 mg BID [facility] Administration Latanoprost 1 drop 05/18/18 22:00 05/19/18 21:15 Xalatan 0.005% Eye Drops - OU 1 drop HS [facility] Administration Metoprolol Succinate 50 mg 05/19/18 10:00 05/19/18 10:05 Toprol Xl - PO 50 mg DAILY [facility] Administration Senna 2 tab 05/18/18 13:45 05/18/18 21:06 Senna - PO 2 tab HS PRN Administration CONSTIPATION Timolol Maleate 1 drop 05/18/18 22:00 05/19/18 21:15 Timoptic 0.5% OU 1 drop BID [facility] Administration Tramadol HCl 50 mg 05/18/18 13:45 05/20/18 06:20 Ultram - PO 50 mg Q6H PRN Administration PAIN LEVEL 6-10 ASSESSMENT/PLAN:
[2018-05-20 09:28] LABS: BASO % 0.3 % (0-2.0); HEMATOCRIT 33.2 % (32.4-45.2); HEMOGLOBIN 11.8 GM/dL (10.7-15.3); LYMPH % 10.3 % (8-40); MCH 30.5 pg (25.7-33.7); MCHC 35.4 g/dl (32.0-36.0); MEAN CELL VOLUME 86.3 fl (80-96); MEAN PLT VOLUME 7.1 fl (7.5-11.1); MONO % 8.6 % (3.8-10.2); NEUT % 80.8 % (42.8-82.8); PLATELET COUNT 333 K/MM3 (134-434); RBC 3.85 M/mm3 (3.60-5.2); RDW 15.3 % (11.6-15.6); WHITE BLOOD COUNT 10.4 K/mm3 (4.0-10.0)
[2018-05-20 09:49] LABS: INR 1.07 (0.83-1.09); PROTHROMBIN TIME (PATIENT) 12.6 SEC (9.7-13.0)
--- NOTE | 2018-05-20 09:56 | PN ---
Progress Note (short form) - Note Progress Note: AVSS COMFORTABLE BANDAGES DRY AND INTACT CALF SOFT AND NT NVI IMP: DOING WELL PLAN: OOB, PT-WBAT, DC PLANNING
[2018-05-20] MEDS: DIGOXIN 0.125 MG TABLET (FP) PO SCH (10:14)
[2018-05-20] MEDS: COLLAGENASE CLOSTRIDIUM HIST. 30 GRAMS TUBE TP SCH (10:15)
[2018-05-20] MEDS: ENOXAPARIN NA (PORCINE) 60 MG/0.6 ML DISP.SYRIN SQ SCH (10:15)
[2018-05-20] MEDS: BACITRACIN 15 GM TUBE TOPICAL OINTMENT TP SCH (10:15)
[2018-05-20] MEDS: TIMOLOL 0.5% OPHTHALMIC SOL 5 ML BOTTLE OU SCH (10:15)
[2018-05-20] MEDS: DORZOLAMIDE 2% HCL OPHTHALMIC SOLUTION 10 ML BOTTLE OU SCH (10:16)
[2018-05-20 10:27] LABS: ALBUMIN 2.4 g/dl (3.4-5.0); ALK PHOS 71 U/L (45-117); ANION GAP 7 MMOL/L (8-16); BILIRUBIN,TOTAL 0.8 mg/dL (0.2-1); BLOOD UREA NITROGEN 23 mg/dL (7-18); CALCIUM 8.3 mg/dL (8.5-10.1); CHLORIDE 97 mmol/L (98-107); CO2 27 mmol/L (21-32); CREATININE 0.6 mg/dL (0.55-1.3); GLUCOSE,RANDOM 200 mg/dL (74-106); MAGNESIUM 1.9 mg/dL (1.8-2.4); PHOSPHOROUS 2.8 mg/dL (2.5-4.9); POTASSIUM 3.8 mmol/L (3.5-5.1); SGOT/AST 29 U/L (15-37); SGPT/ALT 16 U/L (13-61); SODIUM 131 mmol/L (136-145); TOT PROT 5.4 g/dl (6.4-8.2)
[2018-05-20] MEDS ORDERED: MAGNESIUM SULF 50% (8.12 MEQ/2 ML-1 GM VIAL) IVPB ONE (13:30)
[2018-05-20] MEDS ORDERED: NAPH,MB-DB/K PH,MBDB POWDER PACKET PO ONE (13:30)
--- NOTE | 2018-05-20 13:36 | ECHO ---
Name: BORA MELENDEZ Exam:Adult Echocardiogram Study Date: 05/20/2018 10:46 AM Age: 87 yrs Reason For Study: LV Function Height: 63 in Weight: 95 lb BSA: 1.4 m2 MMode/2D Measurements & Calculations IVSd: 1.1 cm Ao root diam: 2.9 cm LVIDd: 3.9 cm LA dimension: 3.6 cm LVIDs: 2.6 cm LVPWd: 0.81 cm EDV(Teich): 67.9 ml LAV (MOD-bp): 64.6 ml ESV(Teich): 23.6 ml Doppler Measurements & Calculations MV E max anup: 77.6 cm/sec AI P1/2t: 496.0 msec MV A max anup: 43.7 cm/sec MV E/A: 1.8 MV dec time: 0.13 sec AI max anup: 308.8 cm/sec MR max anup: 647.7 cm/sec AI max P.1 mmHg MR max P.8 mmHg AI dec slope: 182.3 cm/sec2 TR max anup: 300.7 cm/sec Med Peak E' Anup: 8.1 cm/sec TR max P.2 mmHg Med E/e': 9.6 Lat Peak E' Anup: 12.4 cm/sec Lat E/e': 6.3 Left Ventricle The left ventricle is grossly normal size. The left ventricular ejection fraction is normal. Ejection Fraction = 55%. A full diastolic examination was done with clinical findings of Class I diastolic dysfunction. The left ventricular wall motion is normal. Right Ventricle The right ventricular systolic function is normal. Atria The left atrium is moderately dilated. The right atrium is mildly dilated. Mitral Valve There is mild to moderate mitral valve thickening. There is moderate to severe mitral regurgitation. Tricuspid Valve There is moderate tricuspid regurgitation. There is mild pulmonary hypertension. Right ventricular sy stolic pressure is elevated at 30-40mmHg. Aortic Valve There is moderate aortic valve thickening. Hemodynamically significant valvular aortic stenosis canno t be excluded. Moderate aortic regurgitation. Pulmonic Valve Mild pulmonic valvular regurgitation. Great Vessels The aortic root is normal size. Pericardium/Pleura There is no pericardial effusion. Interpretation Summary The left ventricle is grossly normal size. The left ventricular ejection fraction is normal. Ejection Fraction = 55%. The right ventricular systolic function is normal. The left atrium is moderately dilated. There is mild to moderate mitral valve thickening. There is moderate to severe mitral regurgitation. There is moderate tricuspid regurgitation. There is mild pulmonary hypertension. Right ventricular systolic pressure is elevated at 30-40mmHg. There is moderate aortic valve thickening. Moderate aortic regurgitation. Hemodynamically significant valvular aortic stenosis cannot be excluded. Mild pulmonic valvular regurgitation. The aortic root is normal size. There is no pericardial effusion. Dale Rush MD 05/20/2018 01:35 PM
--- NOTE | 2018-05-20 15:30 | PN ---
Teaching Attending Note Name of Resident: Chava Santos ATTENDING PHYSICIAN STATEMENT I saw and evaluated the patient. I reviewed the resident's note and discussed the case with the resident. I agree with the resident's findings and plan as documented. SUBJECTIVE: Patient denies pain. OBJECTIVE: Vital Signs Period Temp Pulse Resp BP Sys/Pabon Pulse Ox Last 24 Hr 97.4 F-98.9 F 80-97 18-20 120-157/64-91 96 HEART: S1S2, RRR LUNGS: Clear ABDOMEN: Soft, non-tender, non-distended, normal BS EXTREMITIES: No edema Laboratory Results - last 24 hr 05/20/18 05/20/18 05/20/18 06:00 09:15 09:15 WBC 10.4 H RBC 3.85 Hgb 11.8 Hct 33.2 MCV 86.3 MCH 30.5 MCHC 35.4 RDW 15.3 Plt Count 333 D MPV 7.1 L Absolute Neuts (auto) 8.4 H Neutrophils % 80.8 Lymphocytes % 10.3 Monocytes % 8.6 Eosinophils % 0.0 Basophils % 0.3 Nucleated RBC % 0 PT with INR 12.60 INR 1.07 Sodium 131 L Potassium 3.8 Chloride 97 L Carbon Dioxide 27 Anion Gap 7 L BUN 23 H Creatinine 0.6 Creat Clearance w eGFR > 60 Random Glucose 200 H Calcium 8.3 L Phosphorus 2.8 Magnesium 1.9 Total Bilirubin 0.8 AST 29 ALT 16 Alkaline Phosphatase 71 Total Protein 5.4 L Albumin 2.4 L Current Medications Generic Name Dose Route Start Last Admin Trade Name Freq PRN Reason Stop Dose Admin Acetaminophen 650 mg 05/18/18 13:45 05/18/18 23:12 Tylenol - PO 650 mg Q6H PRN Administration PAIN LEVEL 1-5 Atorvastatin Calcium 20 mg 05/18/18 22:00 05/19/18 21:13 Lipitor - PO 20 mg HS [facility] Administration Bacitracin 1 applic 05/19/18 10:00 05/20/18 10:15 Bacitracin - TP 1 applic DAILY [facility] Administration Collagenase 1 applic 05/19/18 10:00 05/20/18 10:15 Santyl - TP 1 applic DAILY [facility] Administration Protocol Digoxin 0.125 mg 05/19/18 10:00 05/20/18 10:14 Lanoxin - PO 0.125 mg DAILY [facility] Administration Docusate Sodium 100 mg 05/18/18 14:00 05/20/18 13:20 Colace - PO 100 mg TID [facility] Administration Dorzolamide HCl 1 drop 05/18/18 22:00 05/20/18 10:16 Trusopt 2% OU 1 drop BID [facility] Administration Enoxaparin Sodium 45 mg 05/18/18 22:00 05/20/18 10:15 Lovenox - SQ 45 mg BID [facility] Administration Latanoprost 1 drop 05/18/18 22:00 05/19/18 21:15 Xalatan 0.005% Eye Drops - OU 1 drop HS [facility] Administration Metoprolol Succinate 50 mg 05/19/18 10:00 05/20/18 10:14 Toprol Xl - PO 50 mg DAILY [facility] Administration Senna 2 tab 05/18/18 13:45 05/18/18 21:06 Senna - PO 2 tab HS PRN Administration CONSTIPATION Timolol Maleate 1 drop 05/18/18 22:00 05/20/18 10:15 Timoptic 0.5% OU 1 drop BID [facility] Administration Tramadol HCl 50 mg 05/18/18 13:45 05/20/18 13:20 Ultram - PO 50 mg Q6H PRN Administration PAIN LEVEL 6-10 ASSESSMENT AND PLAN: This is an 87 year old woman with a history of HTN, hyperlipidemia, atrial fib, LLE DVT who presented to the ED after falling. 1. Intertrochanteric right femur fracture - s/p gamma nail 05/18 - Pain control - Continue PT 2. HTN - Continue Toprol XL 3. Hyperlipiemia - Continue Lipitor 4. Permanent atrial fib - Rate controlled on Toprol XL, Digoxin - Continue Lovenox 5. History of LLE DVT - Continue Lovenox 6. Unstageable pressure ulcer left heel - Continue wound care with Santyl 7. Stage I pressure ulcer right heel - Continue wound care 8. Disposition - Ok for discharge to [facility] today
--- NOTE | 2018-05-20 17:46 | DS ---
Physical Exam: SUBJECTIVE: Patient seen and examined this AM. She states that she is having some intermittent pain but for the most part her pain is well controlled. OBJECTIVE: Vital Signs Period Temp Pulse Resp BP Sys/Pabon Pulse Ox Last 24 Hr 97.4 F-98.9 F 80-97 18-20 120-157/64-91 96 PHYSICAL EXAM GENERAL: A&O, no acute distress, very thin HEAD: Normocephalic, atraumatic. EYES: PERRL, no scleral icterus EARS, NOSE, THROAT: oropharynx clear without exudates. Moist mucous membranes. NECK: supple without lymphadenopathy LUNGS: CTA b/l, no crackles or wheezes HEART: Regular rate and rhythm, normal S1 and S2 without murmur ABDOMEN: Soft, nontender to palpation, normoactive bowel sounds MUSCULOSKELETAL: Pain with movement of right hip EXTREMITIES:Palpable DP pulses, nonpalpable PTs, warm, well-perfused. No peripheral edema. B/l heel wounds NEUROLOGICAL: Cranial nerves II-XII grossly intact. Normal speech. LABS Laboratory Results - last 24 hr 05/20/18 05/20/18 05/20/18 06:00 09:15 09:15 WBC 10.4 H RBC 3.85 Hgb 11.8 Hct 33.2 MCV 86.3 MCH 30.5 MCHC 35.4 RDW 15.3 Plt Count 333 D MPV 7.1 L Absolute Neuts (auto) 8.4 H Neutrophils % 80.8 Lymphocytes % 10.3 Monocytes % 8.6 Eosinophils % 0.0 Basophils % 0.3 Nucleated RBC % 0 PT with INR 12.60 INR 1.07 Sodium 131 L Potassium 3.8 Chloride 97 L Carbon Dioxide 27 Anion Gap 7 L BUN 23 H Creatinine 0.6 Creat Clearance w eGFR > 60 Random Glucose 200 H Calcium 8.3 L Phosphorus 2.8 Magnesium 1.9 Total Bilirubin 0.8 AST 29 ALT 16 Alkaline Phosphatase 71 Total Protein 5.4 L Albumin 2.4 L HOSPITAL COURSE: Date of Admission:05/16/18 Date of Discharge: 05/20/18 HPI on Admission: Patient is an 87 yo F from residential, with a PMhx of DVT, L Hip fracture ( from previous mechanical fall), A-fib, 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 Patient said she was trying to move from the bed to the chair where she ended up tripping. She said she landed on her butt. She complains of R leg pain and says she is unable to move it. Patient said she fell in December after trying to help her friend from falling, which resulted in a L Hip fracture. She said she had surgery during that time and had to repeat the surgery afterwards. Patient currently denies numbness, tingling, sob, chest pain, chills, fevers, nausea, vomiting. Hospital Course: She was found to have a right hip fracture and was seen by Ortho who did a Right Gamma nail. Her post op hospital course was uncomplicated, she tolerated her diet well and was seen by PT. She was deemed safe for discharge back to [facility]. All questions were answered and pt was in agreement with plan. Minutes to complete discharge: 40 Discharge Summary Reason For Visit: INTERTROCHANTERIC FRACTURE Condition: Stable - Instructions Diet, Activity, Other Instructions: You were admitted for a right hip fracture. You were seen by an orthopedic surgeon who performed a procedure called a "gamma nail insertion" in order to fix your fractured hip. Your post operative course was uncomplicated, you worked with PT who recommended group home facility for more intensive rehab. You were deemed medically safe for discharge. Your [place] catheter was removed this afternoon and you have not yet voided urine , likely due to decreased oral intake of water. If you are unable to urinate on your own you may need to have a straight catheter placed once until your bladder is active enough on its own. Please continue all of your medication as they are prescribed prior to this hospitalization. You should follow up with your primary care physician within 1 week of discharge You should follow up with your orthopedic surgeon within 1-2 weeks of discharge from the hospital. If you have any falls, worsening Shortness of breath/difficulty breathing, or any concerning symptoms, it is important that you are evaluated by your doctor or you return to the Emergency Department. Referrals: Ricardo Mesa MD [Staff Physician] - Disposition: GROUP HOME FACILITY - Home Medications Comprehensive Discharge Medication List: Ambulatory Orders Acetaminophen [Tylenol] 650 mg PO ASDIR 05/16/18 Aspirin [Aspirin EC] 325 mg PO DAILY 05/16/18 Brimonidine Tartrate [Alphagan P 0.1% -] 1 drop TID 05/16/18 Collagenase Clostridium Hist. [Santyl] 1 applic TP DAILY 05/16/18 Digoxin [Lanoxin -] 0.125 mg PO DAILY 05/16/18 Dorzolamide/Timolol/Pf [Dorzolamide-Timolol 2%-0.5%] 1 each OP DAILY 05/16/18 Latanoprostene Bunod [Vyzulta] 5 ml OP HS 05/16/18 Metoprolol Succinate 50 mg PO DAILY 05/16/18 Mupirocin Ointment [Bactroban Ointment (For Decolonization) -] 1 applic TP TID 05/16/18 Simvastatin 40 mg PO DAILY 05/16/18 Tramadol HCl 50 mg PO DAILY 05/16/18 metroNIDAZOLE 1% CREAM [Metrocream 1% Cream -] 1 applic TP DAILY 05/16/18 Enoxaparin [Lovenox -] 45 mg SQ BID disp.syrin 05/20/18 Sennosides [Senna -] 2 tab PO HS PRN tablet 05/20/18 Tramadol HCl 50 mg PO Q8H 5 Days tablet MDD 150 05/20/18 This patient is new to me today: No Emergency Visit: Yes ED Registration Date: 05/16/18 Care time: The patient presented to the Emergency Department on the above date and was hospitalized for further evaluation of their emergent condition. Critical Care patient: No - Discharge Referral Referred to [facility] Med P.C.: No
[2018-05-20 18:18] VITALS: BP 132/72; PULSE 97; TEMP 97.2
== END 2018-05-20 17:45 | DRG 480 ==
LOC: JER 12:12 → JERBED 17:36 → J6S 21:54 → UNDODISIN 05-18 16:21
PROVIDERS: ADMIT Hospitalist; ATTEND Internal Medicine
PROC: 0QS604Z Reposition Right Upper Femur with Internal Fixation Device, Open Approach (ICD-10-PCS; principal; 2018-05-18 14:00)
DX: S72.141A Displaced intertrochanteric fracture of right femur, initial encounter for closed fracture (principal); L89.623 Pressure ulcer of left heel, stage 3; E43 Unspecified severe protein-calorie malnutrition; E87.1 Hypo-osmolality and hyponatremia; Z68.1 Body mass index [BMI] 19.9 or less, adult; L89.620 Pressure ulcer of left heel, unstageable; L89.611 Pressure ulcer of right heel, stage 1; I48.91 Unspecified atrial fibrillation; E78.5 Hyperlipidemia, unspecified; D72.829 Elevated white blood cell count, unspecified; I48.2 Chronic atrial fibrillation; Z86.718 Personal history of other venous thrombosis and embolism; W18.39XA Other fall on same level, initial encounter; Y92.008 Other place in unspecified non-institutional (private) residence as the place of occurrence of the external cause
CPT/HCPCS: 36415; 70450-TC; 71045-TC-FY; 73523-TC-FY; 76000-TC-FY; 80053; 80162; 81003; 82550; 83735; 84100; 84484; 85025; 85610; 86850; 86900; 86901; 87086; 93005; 93010; 93306-TC; 93922; 93925-TC; 93970-TC; 93978; 94760; 97116-GP; 97162-GP; 99283-25; J0131

== ENCOUNTER 2018-07-24 12:27 | Day surgery (SDC) | payer OTHER ==
[2018-07-21 12:23] VITALS: BMI 16.9
[2018-07-24] MEDS ORDERED: LIDOCAINE HCL 1%, 10 MG/ML (20ML VIAL) ONE (13:32)
[2018-07-24] MEDS ORDERED: HEPARIN NA (PORCINE) 5,000 UNITS/ML 1ML VIAL ONE (13:32)
[2018-07-24] MEDS ORDERED: MIDAZOLAM HCL 2 MG/2 ML SINGLE DOSE VIAL ONE (14:37)
[2018-07-24] MEDS ORDERED: PROPOFOL 20 ML ONE (14:41)
[2018-07-24] MEDS ORDERED: ceFAZolin SODIUM 1 GM VIAL IVPB ONE (14:42)
[2018-07-24] MEDS ORDERED: LIDOCAINE HCL 1%, 10 MG/ML (20ML VIAL) INF ONE (14:52)
--- NOTE | 2018-07-24 15:44 | OP ---
Operative Note - Note: Operative Date: 07/24/18 Pre-Operative Diagnosis: Left lower extremity rest pain Operation: Aortogram, Left iliac artery angiogram, angioplasty, stent placement. Findings: Left common iliac artery occlusion Post-Operative Diagnosis: Same as Pre-op Surgeon: Nba Tam Anesthesia: Fractional Estimated Blood Loss (mls): 50 Operative Report Dictated: Yes
--- NOTE | 2018-07-24 15:47 | HP ---
Admitting History and Physical - Admission Chief Complaint: left lower ext rest pain. Pre-operative ultrasound shows left common iliac artery occlusion Limitations to Obtaining History: No Limitations - Advance Directives Advance Directives: Yes: Health Care Proxy, DNR - Smoking History Smoking history: Never smoked Have you smoked in the past 12 months: No - Alcohol/Substance Use Hx Alcohol Use: No Home Medications - Allergies Allergies/Adverse Reactions: Allergies Allergy/AdvReac Type Severity Reaction Status Date / Time No Known Allergies Allergy Verified 05/16/18 12:32 - Home Medications Home Medications: Ambulatory Orders Acetaminophen [Tylenol] 650 mg PO ASDIR 05/16/18 Brimonidine Tartrate [Alphagan P 0.1% -] 1 drop TID 05/16/18 Collagenase Clostridium Hist. [Santyl] 1 applic TP DAILY 05/16/18 Digoxin [Lanoxin -] 0.125 mg PO DAILY 05/16/18 Dorzolamide/Timolol/Pf [Dorzolamide-Timolol 2%-0.5%] 1 each OP DAILY 05/16/18 Metoprolol Succinate 50 mg PO DAILY 05/16/18 Sennosides [Senna -] 2 tab PO HS PRN tablet 05/20/18 Eliquis 2.5 mg PO BID 07/03/18 Atorvastatin Ca [Lipitor] 80 mg PO HS 07/24/18 Docusate Sodium [Colace] 100 mg PO DAILY 07/24/18 Hydrocolloid Dressing [Tegaderm Hydrocolloid] 1 each TP ASDIR 07/24/18 Magnesium Hydrox 2400MG/30Ml [Milk of Magnesia -] 30 ml PO PRN 07/24/18 Oxycodone HCl 5 mg PO DAILY 07/24/18 Review of Systems - Review of Systems Constitutional: reports: No Symptoms Eyes: reports: No Symptoms HENT: reports: No Symptoms Neck: reports: No Symptoms Cardiovascular: reports: No Symptoms Respiratory: reports: No Symptoms Gastrointestinal: reports: No Symptoms Genitourinary: reports: No Symptoms Musculoskeletal: reports: No Symptoms Integumentary: reports: No Symptoms Neurological: reports: No Symptoms Endocrine: reports: No Symptoms Hematology/Lymphatic: reports: No Symptoms Psychiatric: reports: No Symptoms Physical Examination Vital Signs: Vital Signs Temperature 97.5 F L 07/24/18 13:36 Pulse Rate 82 07/24/18 13:36 Respiratory Rate 20 07/24/18 13:36 Blood Pressure 154/73 07/24/18 13:36 O2 Sat by Pulse Oximetry (%) 98 07/24/18 13:36 Constitutional: Yes: Well Nourished, No Distress, Calm Eyes: Yes: WNL, Conjunctiva Clear, EOM Intact HENT: Yes: WNL, Atraumatic, Normocephalic Neck: Yes: WNL, Supple, Trachea Midline Cardiovascular: Yes: WNL, Regular Rate and Rhythm Respiratory: Yes: WNL, Regular, CTA Bilaterally Gastrointestinal: Yes: WNL, Normal Bowel Sounds Musculoskeletal: Yes: WNL Extremities: Yes: WNL Edema: No Peripheral Pulses WNL: Yes Integumentary: Yes: WNL Neurological: Yes: WNL, Alert, Oriented ...Motor Strength: WNL Psychiatric: Yes: WNL Problem List - Problems (1) 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
[2018-07-24 17:19] VITALS: TEMP 97
[2018-07-24 18:10] VITALS: BP 130/70; PULSE 70
--- NOTE | 2018-07-25 09:06 | OP ---
DATE OF OPERATION: 07/24/2018 PREOPERATIVE DIAGNOSIS: Left lower extremity rest pain. POSTOPERATIVE DIAGNOSIS: Left lower extremity rest pain. PROCEDURE: Left lower extremity aortogram, left iliac artery angiogram, left common iliac artery angioplasty with stent placement. SURGEON: Nba Albert DO ANESTHESIA: Fractional. BLOOD LOSS: 50 mL. The patient is an 88-year-old female that has left lower extremity rest pain. Preoperative ultrasound showed a left common iliac artery occlusion. She got medical and cardiology clearance and then was booked for ambulatory surgery. Patient was consented for the procedure understanding all risks, benefits and alternatives and was then taken to the operating room. Once in the operating room laid on the operating table in the supine manner and the area of the left and right groin was prepped and draped in a sterile surgical manner. We then under ultrasound guidance visualized the left common femoral artery and 10 mL of lidocaine 1% was injected there. We then took our micropuncture needle and punctured the left common femoral artery under ultrasound guidance. Micropuncture wire was inserted. Micropuncture sheath was inserted and a 0.035 floppy guidewire was inserted into the iliac artery. We then went ahead and placed a 7-Mac[place] sheath into the common femoral artery. IV heparin 5000 units were then administered to the patient. We then went ahead and shot an iliac artery angiogram via hand injection which showed that the common iliac artery was completely occluded. We placed a 0.035 stiff guidewire up followed by a Cory catheter and we selectively crossed the lesion and placed the wire into the aorta followed by the Cory catheter. We then shot an aortogram showing that the aorta and the right iliac artery were patent, but the left common iliac artery was occluded and beyond that the external iliac artery was patent. At this point we removed our [place] catheter. We then used a 5 x 8 [place] and performed angioplasty of the iliac artery. We then went ahead and we used a balloon-mounted Bard stent and went ahead and placed a 6 x balloon-mounted stent and ballooned the stent in place. Completion angiogram now showed that the iliac artery was patent. There was no recoil of the stent. There was good brisk flow. There was a good palpable pulse in the left femoral artery. At this point no more intervention was needed. We went ahead and deployed the StarClose device in the left common femoral artery. Pressure was held for 5 minutes. After there was no bleeding. Area was wet and dried and Dermabond was placed. Patient tolerated the procedure with no complications. Patient transferred to PACU in stable condition. NBA ALBERT DO NP/[id number]
== END 2018-07-24 18:10 | disposition home or self-care (01) ==
LOC: JASU-SURG 12:27
PROVIDERS: ATTEND Surgery Vascular Surgery
PROC: 047D3DZ Dilation of Left Common Iliac Artery with Intraluminal Device, Percutaneous Approach (ICD-10-PCS; principal; 2018-07-24 14:00)
DX: I70.222 Atherosclerosis of native arteries of extremities with rest pain, left leg (principal); I74.5 Embolism and thrombosis of iliac artery; I74.3 Embolism and thrombosis of arteries of the lower extremities
CPT/HCPCS: 37221; C1877; 76000-TC-FY; 94760; J1644

== ENCOUNTER → 2018-12-17 | Day surgery (SDC) | payer OTHER | LOC: JRADIR 13:56 | PROVIDERS: ATTEND Surgery Vascular Surgery | DX: M86.9 Osteomyelitis, unspecified (principal) | CPT/HCPCS: 36569; 77001-TC-FY; C1751 ==